=== PATIENT | female | born 1945 | race Caucasian/White ===

== ENCOUNTER 2024-04-23 20:49 | Emergency (ER) | payer MEDICARE, BC, SELFPAY ==
[2024-04-23 21:20] VITALS: BP 138/74; PULSE 111; RESP 16; TEMP 37.7; O2SAT 99; BMI 29.2
--- NOTE | 2024-04-23 21:36 | ED_ITS ---
HPI - General Adult General Chief complaint: Abdominal Pain Stated complaint: Abdominal Pain Time Seen by Provider: 04/23/24 21:25 Source: patient Mode of arrival: ambulatory Limitations: no limitations History of Present Illness HPI narrative: 78-year-old female coming in today complaining of abdominal pain that started almost 24 hours ago. She states that it comes and goes, nothing makes it better or worse. Pain is located in the lower central abdomen radiates to the left on the right. The she states that she has no dysuria, increased urinary frequency or urgency. She denies any vomiting but did have 1 episode of nausea. Last bowel movement was yesterday. She denies any fevers but feels colder than usual. She is quite concerned because her temperature usually runs 97 and today she was 99. No chest pain, headache, fatigue or weakness. Past surgical history includes a hysterectomy and oophorectomy, cholecystectomy, appendectomy. She has also had a tonsillectomy. Related Data Home Medications ?Medication ?Instructions ?Recorded ?Confirmed asprin 81 mg sublingual 10/07/22 04/25/23 calcium carbonate (Tums Ultra) 400 mg PO ONCE 10/07/22 04/25/23 chlorthalidone 25 mg tablet 25 mg PO 10/07/22 04/25/23 cholecalciferol (vitamin D3) 125 125 mcg PO QDAY 10/07/22 04/25/23 mcg (5,000 unit) capsule losartan 50 mg tablet 50 mg PO 10/07/22 04/25/23 nitroglycerin 0.4 mg sublingual 0.4 mg sublingual 10/07/22 04/25/23 tablet pantoprazole 20 mg tablet,delayed mg PO 10/07/22 04/25/23 release potassium chloride 10 mEq meq PO 10/07/22 04/25/23 tablet,extended release(part/cryst) acetaminophen 500 mg tablet 500 mg PO Q6H PRN 04/25/23 04/25/23 (Tylenol Extra Strength) psyllium husk 0.4 gram capsule 0.4 g PO QDAY 04/25/23 04/25/23 (Metamucil) Previous Rx's ?Medication ?Instructions ?Recorded ketorolac 10 mg tablet 10 mg PO Q8H 5 days #15 tabs 04/23/23 ciprofloxacin HCl 500 mg tablet 500 mg PO BID 10 days #20 tabs 04/23/24 metronidazole 500 mg tablet 500 mg PO TID 10 days #30 tabs 04/23/24 Allergies Allergy/AdvReac Type Severity Reaction Status Date / Time codeine Allergy Verified 04/23/24 21:22 hydrocodone Allergy Verified 04/23/24 21:22 iodine Allergy Verified 04/23/24 21:22 lisinopril Allergy Verified 04/23/24 21:22 meperidine [From Demerol] Allergy Verified 04/23/24 21:22 nitrofurantoin Allergy Verified 04/23/24 21:22 [From Macrodantin] oxycodone Allergy Verified 04/23/24 21:22 Penicillins Allergy Verified 04/23/24 21:22 [id number] Reductase Allergy Verified 04/23/24 21:22 Inhibitor Sulfa (Sulfonamide Allergy Verified 04/23/24 21:22 Antibiotics) tetracycline Allergy Verified 04/23/24 21:22 hydromorphone [From Dilaudid] AdvReac Verified 04/23/24 21:22 Review of Systems Status of ROS: Reports: 10 or more systems reviewed and unremarkable except as noted in History and below PFSH PFS Medical History H. 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) Surgical History History of cholecystectomy (~08/2021) ?Z90.49 - Acquired absence of other specified parts of digestive tract (ICD- 10) History of tonsillectomy ?Z90.89 - Acquired absence of other organs (ICD-10) History of hysterectomy ?Z90.710 - Acquired absence of both cervix and uterus (ICD-10) Social History Narrative: -[place] Smoking Status: Former smoker What tobacco products do you use: cigarettes Smoking quit date/years: >15 years ago Do you use any of these nicotine containing products: None Second hand tobacco smoke exposure: No How often do you have a drink containing alcohol: 2-4 times a month How many standard drinks containing alcohol do you have on a typical day: 1 or 2 How often do you have six or more drinks on one occasion: Never AUDIT-C Alcohol total score: 2 Non-prescribed substance use: denies use service: No Exam Narrative: Exam Narrative: Well-nourished well-developed patient in no acute distress. Alert and oriented. Answers questions appropriately. Mood and affect are appropriate. Thoughts are goal oriented and rational. No tangential or magical thinking noted. Patient speaks in full sentences without needing to catch her breath. HEENT: Normocephalic atraumatic. Pupils are equally round reactive to light. Extraocular muscles are intact. Conjunctivae are moist without any icterus noted. Moist mucous membranes. Posterior pharynx is normal. Neck is soft. Cardiovascular: Heart is regular rate and rhythm S1 and S2 are present without any murmurs. Lungs: Clear to auscultation bilaterally no wheezes rhonchi or rales are appreciated. Patient takes deep breaths without any discomfort. Abdomen: Soft and nondistended. Patient jumps in discomfort with light touch to the majority of the abdominal wall. I can auscultate quite firmly with a stethoscope, bowel sounds are normal. Extremities: Bilateral lower extremities are without edema. Skin: Well perfused without any obvious rashes. Const: Vital Signs, click to edit/add: Vital Signs - 24 hr 04/23/24 21:20 Temperature 99.9 F H Pulse Rate [Right Pulse Oximeter] 111 H Respiratory Rate 16 Blood Pressure [Ri ght Upper Arm] 138/74 Pulse Oximetry 99 Oxygen Delivery Me thod Room Air Course Course ED Course: IV established and labs were ordered. Because of the amount of pain that the patient was describing and given her tachycardia, we did proceed with an abdominal CT scan. CBC showed a slightly elevated white cell count at 13.22, 75% neutrophils. Normal hemoglobin and platelet count. Potassium was slightly low at 3.2, remainder of electrolytes were unremarkable. LFTs were normal. CRP is elevated at 5.6. Normal lipase. UA was unremarkable. Abdominal CT scan: Shows acute uncomplicated diverticulitis. Vital Signs Vital signs: Initial Vital Signs Temperature 99.9 F H 04/23/24 21:20 Temperature Source Temporal Artery Scan 04/23/24 21:20 Pulse Rate 111 H 04/23/24 21:20 Pulse Rhythm Regular 04/23/24 21:20 Pulse Strength 3+ Normal 04/23/24 21:20 Respiratory Rate 16 04/23/24 21:20 Blood Pressure 138/74 04/23/24 21:20 Blood Pressure Mean 95 04/23/24 21:20 Blood Pressure Position Sitting 04/23/24 21:20 Pulse Oximetry 99 04/23/24 21:20 Oxygen Delivery Method Room Air 04/23/24 21:20 Vital Signs Temperature 99.9 F H 04/23/24 21:20 Pulse Rate 111 H 04/23/24 21:20 Respiratory Rate 16 04/23/24 21:20 Blood Pressure 138/74 04/23/24 21:20 Pulse Oximetry 99 04/23/24 21:20 Oxygen Delivery Method Room Air 04/23/24 21:20 Temperature 99.9 F H 04/23/24 21:20 Pulse Rate 111 H 04/23/24 21:20 Respiratory Rate 16 04/23/24 21:20 Blood Pressure 138/74 04/23/24 21:20 Pulse Oximetry 99 04/23/24 21:20 Oxygen Delivery Method Room Air 04/23/24 21:20 Medications Administered Medications: Discontinued Medications Generic Name Dose Route Start Last Admin Trade Name Freq PRN Reason Stop Dose Admin Sodium Chloride 1,000 mls @ 1,000 mls/hr 04/23/24 22:30 04/23/24 23:33 0.9 % Sodium Chloride 1000 Ml IV 04/23/24 23:29 Infused .Q1H EDITA Infusion Medical Decision Making MDM Narrative Medical decision making narrative: 78-year-old female with diverticulitis. Since the patient is not having any vomiting and is feeling better after fluid hydration, I do think that outpatient management is appropriate at this time. Patient will be sent home on Flagyl and ciprofloxacin. Follow-up with primary care in 1 week. Medical Records Medical records reviewed: Yes I reviewed the patient's medical records Lab Data Lab results reviewed: Yes I reviewed the patient's lab results Labs: Lab Results 04/23/24 04/23/24 04/23/24 Range/Units 21:49 21:49 21:49 WBC (4.50-11.00) K/uL RBC (4.00-5.20) m/uL Hgb (12.0-16.0) gm/dL Hct (33.0-51.0) % MCV (80-100) fL MCH (26-34) pg MCHC (32-36) gm/dL RDW Coeff of Rocio (11.5-15.5) % Plt Count (140-440) K/uL Neut % (Auto) (42.0-72.0) % Lymph % (Auto) (20-44) % [place] % (Auto) (0.0-11.0) % Eos % (Auto) (0.0-7.0) % Baso % (Auto) (0.0-3.0) % Neut # (Auto) (1.7-7.0) K/uL Lymph # (Auto) (0.90-2.90) K/uL [place] # (Auto) (0.00-0.90) K/UL Eos # (Auto) (0.00-0.50) K/uL Baso # (Auto) (0.00-0.30) K/uL Abs Immat Gran (auto) (0.00-0.30) K/uL Imm/Tot Granulo (auto) % Sodium 136 (135-149) mmol/L Potassium 3.2 L (3.6-5.1) mmol/L Chloride 102 (96-114) mmol/L Carbon Dioxide 30 (20-32) mmol/L Anion Gap 4 L (7-15) mEq/L BUN 15 (7-30) mg/dL Creatinine 0.7 (0.5-1.5) mg/dL Estimated Creat Clear 38.97 Estimated GFR 89 ml/min Glucose 105 (60-115) mg/dL Lactate 0.9 (0.5-1.9) mmol/L Calcium 8.8 (8.4-10.6) mg/dL Total Bilirubin 1.2 Cancelled (0.1-1.5) mg/dL Direct Bilirubin 0.5 Cancelled (0.0-0.5) mg/dL AST 29 (12-35) U/L ALT (4-35) U/L Alkaline Phosphatase (40-150) U/L C-Reactive Protein (0.5-1.0) mg/dL Total Protein (6.0-8.3) g/dL Albumin (3.3-5.0) g/dL Lipase (23-300) U/L Urine Color (Yellow) Urine Appearance (Clear) Urine pH (5.0-8.5) Ur Specific [place] (1.000-1.030) Urine Protein (Negative) Urine Glucose (UA) (Negative) Urine Ketones (Negative) Urine Blood (Negative) Urine Nitrite (Negative) Urine Bilirubin (Negative) Urine Urobilinogen (0.2-1.0) Ur Leukocyte Esterase (Negative) Urine RBC (0-2) Urine WBC (0-5) Ur Squamous Epith Cells (None-Few) Urine Bacteria (None) POC Creatinine (0.6-1.3) mg/dl 04/23/24 04/23/24 04/23/24 Range/Units 21:49 21:49 21:49 WBC (4.50-11.00) K/uL RBC (4.00-5.20) m/uL Hgb (12.0-16.0) gm/dL Hct (33.0-51.0) % MCV (80-100) fL MCH (26-34) pg MCHC (32-36) gm/dL RDW Coeff of Rocio (11.5-15.5) % Plt Count (140-440) K/uL Neut % (Auto) (42.0-72.0) % Lymph % (Auto) (20-44) % [place] % (Auto) (0.0-11.0) % Eos % (Auto) (0.0-7.0) % Baso % (Auto) (0.0-3.0) % Neut # (Auto) (1.7-7.0) K/uL Lymph # (Auto) (0.90-2.90) K/uL [place] # (Auto) (0.00-0.90) K/UL Eos # (Auto) (0.00-0.50) K/uL Baso # (Auto) (0.00-0.30) K/uL Abs Immat Gran (auto) (0.00-0.30) K/uL Imm/Tot Granulo (auto) % Sodium (135-149) mmol/L Potassium (3.6-5.1) mmol/L Chloride (96-114) mmol/L Carbon Dioxide (20-32) mmol/L Anion Gap (7-15) mEq/L BUN (7-30) mg/dL Creatinine (0.5-1.5) mg/dL Estimated Creat Clear Estimated GFR ml/min Glucose (60-115) mg/dL Lactate (0.5-1.9) mmol/L Calcium (8.4-10.6) mg/dL Total Bilirubin (0.1-1.5) mg/dL Direct Bilirubin (0.0-0.5) mg/dL AST Cancelled (12-35) U/L ALT 21 Cancelled (4-35) U/L Alkaline Phosphatase 88 Cancelled (40-150) U/L C-Reactive Protein 5.6 H (0.5-1.0) mg/dL Total Protein 8.0 (6.0-8.3) g/dL Albumin (3.3-5.0) g/dL Lipase (23-300) U/L Urine Color (Yellow) Urine Appearance (Clear) Urine pH (5.0-8.5) Ur Specific [place] (1.000-1.030) Urine Protein (Negative) Urine Glucose (UA) (Negative) Urine Ketones (Negative) Urine Blood (Negative) Urine Nitrite (Negative) Urine Bilirubin (Negative) Urine Urobilinogen (0.2-1.0) Ur Leukocyte Esterase (Negative) Urine RBC (0-2) Urine WBC (0-5) Ur Squamous Epith Cells (None-Few) Urine Bacteria (None) POC Creatinine (0.6-1.3) mg/dl 04/23/24 04/23/24 04/23/24 Range/Units 21:49 21:49 21:49 WBC (4.50-11.00) K/uL RBC (4.00-5.20) m/uL Hgb (12.0-16.0) gm/dL Hct (33.0-51.0) % MCV (80-100) fL MCH (26-34) pg MCHC (32-36) gm/dL RDW Coeff of Rocio (11.5-15.5) % Plt Count (140-440) K/uL Neut % (Auto) (42.0-72.0) % Lymph % (Auto) (20-44) % [place] % (Auto) (0.0-11.0) % Eos % (Auto) (0.0-7.0) % Baso % (Auto) (0.0-3.0) % Neut # (Auto) (1.7-7.0) K/uL Lymph # (Auto) (0.90-2.90) K/uL [place] # (Auto) (0.00-0.90) K/UL Eos # (Auto) (0.00-0.50) K/uL Baso # (Auto) (0.00-0.30) K/uL Abs Immat Gran (auto) (0.00-0.30) K/uL Imm/Tot Granulo (auto) % Sodium (135-149) mmol/L Potassium (3.6-5.1) mmol/L Chloride (96-114) mmol/L Carbon Dioxide (20-32) mmol/L Anion Gap (7-15) mEq/L BUN (7-30) mg/dL Creatinine (0.5-1.5) mg/dL Estimated Creat Clear Estimated GFR ml/min Glucose (60-115) mg/dL Lactate (0.5-1.9) mmol/L Calcium (8.4-10.6) mg/dL Total Bilirubin (0.1-1.5) mg/dL Direct Bilirubin (0.0-0.5) mg/dL AST (12-35) U/L ALT (4-35) U/L Alkaline Phosphatase (40-150) U/L C-Reactive Protein (0.5-1.0) mg/dL Total Protein Cancelled (6.0-8.3) g/dL Albumin 4.5 Cancelled (3.3-5.0) g/dL Lipase 47 Cancelled (23-300) U/L Urine Color (Yellow) Urine Appearance (Clear) Urine pH (5.0-8.5) Ur Specific [place] (1.000-1.030) Urine Protein (Negative) Urine Glucose (UA) (Negative) Urine Ketones (Negative) Urine Blood (Negative) Urine Nitrite (Negative) Urine Bilirubin (Negative) Urine Urobilinogen (0.2-1.0) Ur Leukocyte Esterase (Negative) Urine RBC (0-2) Urine WBC (0-5) Ur Squamous Epith Cells (None-Few) Urine Bacteria (None) POC Creatinine (0.6-1.3) mg/dl 04/23/24 04/23/24 04/23/24 Range/Units 21:51 22:23 Unknown WBC 13.22 H (4.50-11.00) K/uL RBC 4.86 (4.00-5.20) m/uL Hgb 14.2 (12.0-16.0) gm/dL Hct 43.5 (33.0-51.0) % MCV 90 (80-100) fL MCH 29 (26-34) pg MCHC 33 (32-36) gm/dL RDW Coeff of Rocio 13.1 (11.5-15.5) % Plt Count 149 (140-440) K/uL Neut % (Auto) 75.4 H (42.0-72.0) % Lymph % (Auto) 14.3 L (20-44) % [place] % (Auto) 8.9 (0.0-11.0) % Eos % (Auto) 0.3 (0.0-7.0) % Baso % (Auto) 0.5 (0.0-3.0) % Neut # (Auto) 10.00 H (1.7-7.0) K/uL Lymph # (Auto) 1.90 (0.90-2.90) K/uL [place] # (Auto) 1.20 H (0.00-0.90) K/UL Eos # (Auto) 0.00 (0.00-0.50) K/uL Baso # (Auto) 0.10 (0.00-0.30) K/uL Abs Immat Gran (auto) 0.10 (0.00-0.30) K/uL Imm/Tot Granulo (auto) 0.6 % Sodium (135-149) mmol/L Potassium (3.6-5.1) mmol/L Chloride (96-114) mmol/L Carbon Dioxide (20-32) mmol/L Anion Gap (7-15) mEq/L BUN (7-30) mg/dL Creatinine (0.5-1.5) mg/dL Estimated Creat Clear Estimated GFR ml/min Glucose (60-115) mg/dL Lactate (0.5-1.9) mmol/L Calcium (8.4-10.6) mg/dL Total Bilirubin (0.1-1.5) mg/dL Direct Bilirubin (0.0-0.5) mg/dL AST (12-35) U/L ALT (4-35) U/L Alkaline Phosphatase (40-150) U/L C-Reactive Protein (0.5-1.0) mg/dL Total Protein (6.0-8.3) g/dL Albumin (3.3-5.0) g/dL Lipase (23-300) U/L Urine Color Yellow (Yellow) Urine Appearance Clear (Clear) Urine pH 7.0 (5.0-8.5) Ur Specific [place] 1.010 (1.000-1.030) Urine Protein Negative (Negative) Urine Glucose (UA) Negative (Negative) Urine Ketones Negative (Negative) Urine Blood Negative (Negative) Urine Nitrite Negative (Negative) Urine Bilirubin Negative (Negative) Urine Urobilinogen 0.2 (0.2-1.0) Ur Leukocyte Esterase Negative (Negative) Urine RBC 0-2 (0-2) Urine WBC 0-2 (0-5) Ur Squamous Epith Cells Moderate A (None-Few) Urine Bacteria Few A (None) POC Creatinine 0.7 (0.6-1.3) mg/dl Imaging Data CT scan - abdomen: Attestation: I have reviewed the pertinent imaging results. Radiologist's impression: Procedure(s): CT abdomen pelvis [facility] Accession Number(s): [id number] cc: Destini Lynch M.D.; John Johns M.D.~ For Patients: As a result of the Century Cures Act, medical imaging exams and procedure reports are released immediately into your electronic medical record. You may view this report before your referring provider. If you have questions, please contact your health care provider. INDICATION: Abdominal pain. TECHNIQUE: CT abdomen and pelvis without contrast. COMPARISON: None. FINDINGS: Lower chest: Unremarkable. Liver: Normal in size and attenuation. Gallbladder and bile ducts: Status post cholecystectomy. Spleen: Normal in size. Adrenal glands: Normal in size. No nodules. Pancreas: Unremarkable. No mass or inflammation. Kidneys: Normal in size. No stones or hydronephrosis. GI tract: Distal colonic diverticulosis. Wall thickening with surrounding inflammatory stranding of the distal sigmoid colon. No evidence of obstruction. Appendix not visualized. Lymph nodes: No lymphadenopathy. Vasculature: Moderate scattered atherosclerotic calcifications. Abdominal aorta is normal in caliber. Abdominal wall/Omentum/Peritoneum: Trace free fluid in the pelvis. No focal fluid collection. No free air. Pelvis: Status post hysterectomy. Bones: Degenerative changes. Levoconvex curvature of the lumbar spine. IMPRESSION: Acute uncomplicated sigmoid diverticulitis. Discharge Plan Discharge Clinical Impression: Diverticulitis Patient Disposition: Home, Self-Care Condition: Stable Additional Instructions: Take all antibiotics as prescribed. You should follow-up with your primary care provider in 1 week. Prescriptions: New ciprofloxacin HCl 500 mg tablet 500 mg PO BID 10 Days Qty: 20 0RF metronidazole 500 mg tablet 500 mg PO TID 10 Days Qty: 30 0RF No Action losartan 50 mg tablet 50 mg PO chlorthalidone 25 mg tablet 25 mg PO pantoprazole 20 mg tablet,delayed release (DR/EC) PO potassium chloride 10 mEq tablet,ER particles/crystals PO nitroglycerin 0.4 mg tablet, sublingual 0.4 mg sublingual asprin 81 mg sublingual cholecalciferol (vitamin D3) 125 mcg (5,000 unit) capsule 125 mcg PO QDAY calcium carbonate [Tums Ultra] 400 mg calcium (1,000 mg) tablet,chewable 400 mg PO ONCE acetaminophen [Tylenol Extra Strength] 500 mg tablet 500 mg PO Q6H PRN psyllium husk [Metamucil] 0.4 gram capsule 0.4 g PO QDAY ketorolac 10 mg tablet 10 mg PO Q8H 5 Days Qty: 15 0RF Follow Up/Referrals: John Johns MD [Primary Care Provider] - Stand Alone Forms: [facility] Info Instructions
--- NOTE | 2024-04-23 21:41 | CRLHL7_ITS ---
For Patients: As a result of the Century Cures Act, medical imaging exams and procedure reports are released immediately into your electronic medical record. You may view this report before your referring provider. If you have questions, please contact your health care provider. INDICATION: Abdominal pain. TECHNIQUE: CT abdomen and pelvis without contrast. COMPARISON: None. FINDINGS: Lower chest: Unremarkable. Liver: Normal in size and attenuation. Gallbladder and bile ducts: Status post cholecystectomy. Spleen: Normal in size. Adrenal glands: Normal in size. No nodules. Pancreas: Unremarkable. No mass or inflammation. Kidneys: Normal in size. No stones or hydronephrosis. GI tract: Distal colonic diverticulosis. Wall thickening with surrounding inflammatory stranding of the distal sigmoid colon. No evidence of obstruction. Appendix not visualized. Lymph nodes: No lymphadenopathy. Vasculature: Moderate scattered atherosclerotic calcifications. Abdominal aorta is normal in caliber. Abdominal wall/Omentum/Peritoneum: Trace free fluid in the pelvis. No focal fluid collection. No free air. Pelvis: Status post hysterectomy. Bones: Degenerative changes. Levoconvex curvature of the lumbar spine. IMPRESSION: Acute uncomplicated sigmoid diverticulitis. Please note that all CT scans at this facility use dose modulation, iterative reconstruction, and/or weight-based dosing when appropriate to reduce radiation dose to as low as reasonably achievable. Dictated by Emmett Sainz MD @ 04/23/2024 11:37:29 PM (Electronically Signed)
--- OUTSIDE RECORDS SUMMARY | 2024-04-23 21:45 | XMS_ITS | Continuity of Care Document ---
Author Organization [facility] Address [address] [place] [address] Phone Care Team Providers Care Director Of Vital Statistics Name Role Phone Jhoan Sandoval Unavailable Unavailable Allergies, Adverse Reactions, Alerts Substance Reaction Status Criticality Kinkpln-HWK-ScI Reductase Inhibitors Acti ve No Information NITROFURANTOIN MACROCRYSTALLINE Active No Information lisinopril Cough Active No Information hydrocodone Nausea Active No Information Sulfa (Sulfonamide Antibiotics) Unknown Active No Information tetracycline Unknown Active No Information Penicillins Unknown Active No Information oxycodone Nausea Active No Information ATORVASTATIN CALCIUM Unknown Active No Info rmation iodine Unknown Active No Information PRESERVATIVE FREE Unknown Active No Informa tion MEPERIDINE HCL Unknown Active No Informatio n codeine Unknown Active No Information Medications Medication Instructions Dosage Effective Dates (start - stop) Status Comments Vitamin D3 5,000 unit tablet - Active ASPIRIN (unknown strength) Not Available - Active CALCIUM-FOLIC ACID PLUS D (unknown strength) Not Available - Active NITRO-TIME (unknown strength) Not Available - Active OMEPRAZOLE (unknown strength) Not Available - Active CHLORTHALIDONE (unknown strength) Not Available - Active [place]AN POTASSIUM (unknown strength) Not Available - Active Procedures Procedure Date OFFICE/OUTPATIENT VISIT EST Phone Office/Outpatient Visit,New, Mod 2021 Office/Outpatient Visit,Est, Mod 2015 X-Ray Exam Lwr Spine, Min 4 Views Office/Outpatient Visit,Est, Mod 2014 X-Ray Exam Lower Spine 2-3 Views 2014 Office/Outpatient Visit,Est, Mod 2014 X-Ray Exam Lower Spine 2-3 Views 2014 Office/Outpatient Visit,Est, Mod 2014 Office/Outpatient Visit,New, Mod 2014 Advance Directives Directive Yes / No Effective Date File Name No Information Encounters Encounter Description Practice Location Reason(s) For Visit Diagnoses Date Provider Providers Copied on Encounter [facility], [address], [place], [id number], [place] tel:[phone] [facility] No Information 2 Segun Staples. [facility] [place], [address], [place], [place], [id number] , [place]. tel:[phone] OFFICE/OUTPAT IENT VISIT EST Phone [facility], [address], [facility], [place], [id number], [place] tel:[phone] [facility] No Information 2 Segun Staples. [facility], [address], [place], [place], [id number] , [place]. tel:[phone] Referring Provider: Jaren Tran [facility] [address], [place], [address]. tel:[phone] Office/Outpat ient Visit,New, Mod [facility], [address], [facility], [place], [id number], [place] tel:[phone] [facility] Other spondylosis, lumbar regionPain in thoracic spineCervicalgia 2 Segun Staples. [facility] [place], [address], [facility], [id number] , [place]. tel:[phone] Referring Provider: Jaren Tran [facility] [address], [place], [address]. tel:[phone] Office/Outpat ient Visit,Est, Mod [facility], [address], [place], [place], [id number], [place] tel:[phone] [facility] OverweightL2 wedge compression fracture, subsequent encounter for fracture w/ routine healingOther forms of scoliosis, lumbar regionOther spondylosis, lumbosacral region Jan-2 6 [facility]. [facility], [address], [place], [place], [id number] , [place]. tel: [phone] Referring Provider: Jaren Tran [facility] [address], [place], [address]. tel:[phone] Office/Outpat ient Visit,Est, Mod [facility], [address], [place], [id number], [place] tel:[phone] [facility] Closed fracture lumbar vertebraLumbago Sep- 0 5 [facility]. [facility], [address] [address], [facility] [place], [id number] , [place]. tel: [phone] [facility]: [facility] [address], [place], [address]. tel:[phone] Office/Outpat ient Visit,Est, Mod [facility], [address], [place], [id number], [place] tel:[phone] [facility] OVERWEIGHTClosed fracture lumbar vertebra May- 5 [facility]. [facility], [address], [facility] [place], [id number] , [place]. tel: [phone] Referring Provider: J[address], [place], [address]. tel:[phone] Office/Outpat ient Visit,Est, Mod [facility], [address], [place], [id number], [place] tel:[phone] [facility] Closed fracture lumbar vertebra 5 [facility]. [facility], [address], [facility] [place], [id number] , [place]. tel: [phone] Referring Provider: [facility] [address], [place], [address]. tel:[phone] Office/Outpat ient Visit,New, Mod [facility], [address], [place], [place], [id number], [place] tel:[phone] [facility] OVERWEIGHTClosed fracture of lumbar vertebra without mention of spinal cord injuryLumbago 0201 5 [facility]. [facility], [address], [place], [place], [id number] , [place]. tel:[phone] Referring Provider: John Johns, [place], [place], [address]. tel:[phone] Family History Family Member Type Diagnosis Age At Onset No Information Payers Payer name Insurance type Covered constitution party ID Authoriza tion(s) Medicare MB [id number] [facility] [id number] [facility] [id number] Social History Type Description Quantity Date Captured Comments Sex Female Smoking Status No Information Chief Complaint And Reason For Visit No Information Reason For Referral Reason For Referral No Information Plan Of Treatment Date Type Action Status Future Order: Radiology Order AP Lateral Lumbar (APLatLumb), Ordered on: Ordered Future Order: Radiology Order F/ E Lumbar (F/ELumb), Ordered on: Ordered Future Order: Radiology Order AP Lateral Lumbar (APLatLumb), Ordered on: Ordered Future Order: Radiology Order AP Lateral Lumbar (APLatLumb), Ordered on: Ordered Future Order: Radiology Order AP Lateral Lumbar (APLatLumb), Ordered on: Ordered History Of Present Illness Encounter Date Complaint History Of Prese nt Illness No Information Functional Status Date Functional Assessmen t No Information Instructions Date Instruction Additional Infor martir Weight Management Education Rela niya to Overweight Weight management: I nstructed to return to General Practitioner timeframe: 1 Month. Related to Overweight Weight Management Related to Ove rweight Weight Management Related to Ove [facility] providencet Assessments Type Assessment Date No Information Patient Care Teams Name Effective Dates (start - stop) Status Members No Information
--- OUTSIDE RECORDS SUMMARY | 2024-04-23 21:45 | XMS_ITS | Clinical Summary ---
Author Organization [facility] Address [place], [place] [address] Care Team Providers Care Returned Materials Inspector Name Role Phone David Price MD Unavailable [phone] VoteJohn garibay MD Primary Care Provider + Allergies Active Allergy Reactions Criticality Noted Date Comments Codeine 02/20/2007 Meperidine 02/20/2007 Hydromorphone Hallucinations 05/24/2023 Hydrocodone Nausea Only 06/26/2014 Error wrong med Iodine *Unknown - Follow up needed,Anaphylaxis High 02/20/2007 Atorvastatin 02/20/2007 Lisinopril Cough High 12/15/2020 Meperidine Hcl *Unknown - Follow up needed 07/11/2023 Nitrofurantoin *Unknown Low 02/20/2007 Oxycodone Nausea Only 06/26/2014 Penicillins *Unknown - Follow up needed Low 02/20/2007 Pneumococcal Vaccine Edema 05/24/2023 Evolocumab Other - Describe In Comment Field 05/14/2019 Back pain (major) Fdyahzz-Ueu-Wor Reductase Inhibitors *Unknown,*Unknown - Follow up needed 02/20/2007 all statins Sulfa (Sulfonamide Antibiotics) *Unknown - Follow up needed 02/20/2007 Tetracycline *Unknown - Follow up needed 02/20/2007 Unlisted Allergen (Include Detail In Comments) Myalgia,*Unknown - Follow up needed,Other - Describe In Comment Field High 12/15/2020 Medications Medication Sig Dispensed Refills Start Date End Date Status Cholecalciferol, Vitamin D3, (VITAMIN D-3) 5,000 unit tabIndications:Vitam in D deficiency Take 1 tablet by mouth once daily. 100 tablet 3 09/15/2014 Active aspirin (ECOTRIN) 81 mg enteric coated tablet Take 1 tablet by mouth once daily with a meal. 0 10/04/2019 Active calcium carbonate CHEWABLE (TUMS) 750 mg chewable tablet Take 1 tablet by mouth 3 times daily with meals. 0 12/24/2020 Active psyllium (MetamuciL) 0.4 gram capsule Take 1 Capsule by mouth once daily. Active Graduated Compression StockingsIndications :Lymphedema of both lower extremities For personal use. Length: calf Strength: 20-30 mmHg 1 Packet 06/08/2023 Active chlorthalidone (HYGROTON) 25 mg tabletIndications:Es sential hypertension Take 1 Tablet (25 mg) by mouth once daily. 90 Tablet 3 04/10/2024 Active losartan (COZAAR) 50 mg tabletIndications:Es sential hypertension Take 1 Tablet (50 mg) by mouth once daily. 90 Tablet 3 04/10/2024 Active nitroglycerin (NITROSTAT) 0.4 mg sublingual tabletIndications: CVD (arteriosclerotic cardiovascular disease) Place 1 Tablet (0.4 mg) under the tongue every 5 minutes if needed for Chest Pain. Up to 3 tablets in 15 minutes. 25 Tablet 3 04/10/2024 Active losartan (COZAAR) 50 mg tabletIndications:Es sential hypertension Take 1 Tablet (50 mg) by mouth once daily. 90 Tablet 3 04/11/2023 4 Discontinue d(Reorder (E-cancel not sent)) nitroglycerin (NITROSTAT) 0.4 mg sublingual tabletIndications: CVD (arteriosclerotic cardiovascular disease) DISSOLVE ONE TABLET UNDER TONGUE EVERY 5 MINUTES NEEDED FOR CHEST PAIN - MAXIMUM 3 DOSES OVER 15 MINUTES, THEN CALL 911 25 Tablet 3 06/02/2023 4 Discontinue d(Reorder (E-cancel not sent)) chlorthalidone (HYGROTON) 25 mg tabletIndications:Es sential hypertension TAKE ONE TABLET BY MOUTH ONCE EVERY DAY . 90 Tablet 02/07/2024 4 Discontinue d(Reorder (E-cancel not sent)) Active Problems Problem Noted Date Diagnosed Date H. pylori infection 06/03/2022 Overview: EGD 05/2022 H. pylori infection with intestinal metaplasia, recommend EGD in 3 years Gastric intestinal metaplasia 06/03/2022 Overview: EGD 05/2022 H. pylori infection with intestinal metaplasia, recommend EGD in 3 years PAD (peripheral artery disease) 04/13/2022 Diverticulosis 08/19/2021 Former smoker 04/25/2018 ASCVD (arteriosclerotic cardiovascular disease) 04/25/2018 Overview: -CT coronary angiogram in 2012 Total calcium socre of 59.6; 75% for age and sex - angiogram 04/26/2018: s/p JOSE DAVID pRCA; residual 70% dCX - CCTA 07/29/2021:Patent right coronary stent but with moderately severe focal soft plaque stenosis post-stent - angiogram 08/12/2021 - Dyspnea 04/25/2018 Osteopenia 06/09/2015 Chest pain 09/11/2013 Hyperlipidemia 11/07/2012 Overview: -Intolerance to Pravachol, Crestor, Vytorin, Zetia, Niacin, and Welchol Elevated blood sugar 11/07/2012 Hypertension 12/14/2007 Dermatophytosis of nail 02/20/2007 Family history of ischemic heart disease Statin intolerance GERD (gastroesophageal reflux disease) Overview: EGD 03/2017 atrophic gastritis, no Ramires's Vitamin D deficiency Overview: 02/2012: 8.1 Resolved Problems Problem Noted Date Diagnosed Date Resolved Date Tobacco use disorder 012 Swelling, mass, or lump in head and neck 07/12/2012 Need for prophylactic hormon e replacement therapy (postmenopausal) 07/12/2012 Encounters Date Type Department Care Team Description 04/17/2024 Telephone [facility] [address] [facility] [address] [place] [address] Jose R Riddle MD Lab 04/10/2024 10:25 AM CDT Office Visit [facility] [address] [place] [address] John Johns MD Medicare ANNUAL (subsequent) Visit (78 year old female) 04/10/2024 Travel 02/26/2024 1:50 PM CDT Preop Visit [facility] [address] [place] [address] Yan Han MD Preoperative Exam (Cataract Surgery RIGHT 03/12/2024 - LEFT 03/18/2024/Dr Silvano Moon/[facility] [place] /FAX [phone]) 02/26/2024 Travel 02/26/2024 Telephone [facility] [address] [place] [address] Yan Han MD change appointment 02/07/2024 Refill [facility] [address] [place] [address] John Johns MD Refill Request (Chlorthalidone) 02/06/2024 Refill [facility] [address] [place] [address] John Johns MD Refill Request (Chlorthalidone) 02/01/2024 Refill [facility] [address] [place] [address] John Johns MD Refill Request (Chlorthalidone) from Last 3 Months Immunizations Name Administration Dates Next Due Influenza, High-dose Quadrivalent Inactivated Influenza, IIV3 (Age >=3 years) 08/22/2017 Influenza, IIV4 09/25/2019 Influenza, Inactivated AIIV4 (Age 65+ Years) Preserv Free 10/05/2022 Influenza, Inactivated IIV3 (Age 65+ Years) Preserv Free 08/22/2017 Pneumococcal Conj 20-valent (Prevnar 20) 023 Pneumococcal conj 13-Valent (Prevnar 13) 021 Td (Age >=7 Years) 02/01/2000 Tdap 02/12/2013 Family History Medical History Relation Name Comments Heart Disease Father Father had tom cardial infarction at age 58. Heart Disease Mother Mother had tom cardial infarction in her 60's. Other Mother macular degener ation Cancer-breast Other Pat. Cousin Heart Disease Sister Sister had tom cardial infarction in her 30's Relation Name Status Comments Father Mother (Age 84) COPD /CHF Other Sister Social History Tobacco Use Types Packs/Day Years Used Date Smoking Tobacco: Former Cigarettes 0.5 20 1 981 - 2000 Smokeless Tobacco: Never Tobacco Cessation:Counseling Given: Yes Comments:01/24/2006 used QuitPlan! Alcohol Use Standard Drinks/Week Comments Yes 0 (1 standard drink = 0.6 oz pur e alcohol) 1 per week or everyother week PHQ-2 Answer Date Recorded PHQ-2 TOTAL SCORE 0 04/10/2024 Social Connections Answer Date Recorded Frequency of Communication with Friends and Fami ly 0 02/26/2024 Financial Resource Strain Answer Date R ecorded Difficulty of Paying Living Expenses 3 02/26/2024 Difficulty of Paying Living Expenses Not on file 02/26/2024 Food Insecurity Answer Date Recorded Worried About Running Out of Food in the Last Ye ar 1 02/26/2024 Transportation Needs Answer Date Record ed Lack of Transportation (Medical) 1 02/26/2024 Housing Stability Answer Date Recorded Unable to Pay for Housing in the Last Year 1 02/26/2024 Sex and Gender Information Value Date Recorded Sex Assigned at Not on file Gender Identity Not on file Sexual Orientation Not on file Obstetrics History Last Filed Vital Signs Vital Sign Reading Time Taken Comments Blood Pressure 129/70 04/10/2024 10:25 AM CDT Pulse 76 04/10/2024 10:25 AM CDT Temperature 36.6 ??C (97.9 ??F) 04/10/2024 10:25 AM C DT Respiratory Rate 16 07/11/2023 12:43 PM CDT Oxygen Saturation 96% 04/10/2024 10:25 AM CDT Inhaled Oxygen Concentration - - Weight 75.4 kg (166 lb 3.2 oz) 04/10/2024 10:25 AM CDT Height 158.4 cm (5' 2.36) 04/10/2024 10:25 AM C DT Body Mass Index 30.05 04/10/2024 10:25 AM CDT Plan of Treatment Upcoming Encounters Date Type Department Care Team (Late st Contact Info) Description 05/20/2024 10:20 AM CDT Office Visit [facility] [place] [address] Bob Harrison MD [address] [place] [address] 06/26/2024 11:00 AM CDT Office Visit [facility] [place] [facility] [address] [place] [address] Jose R Riddle MD [address] [place] [address] Health Maintenance Due Date Last Done Comments Zoster (shingles) series for age 50+ (1 of 2) 1996 Tetanus booster 02/12/2023 02/12/2013, 02/01/2000 COVID-19 vaccine series (2022- season) 2023 Influenza for age 65+ 07/28/2024 10/05/2022 , 09/30/2020, 09/25/2019, Additional history exists BMI (ht and wt on same day) for age 18+ 04/10/2025 04/10/2024, 02/26/2024, 07/11/2023, Additional history exists Depression screening for age 12+ 04/10/2025 04/10/2024, 04/12/2023, 04/11/2023, Additional history exists Medicare Wellness for age 65+ 04/11/2025, 04/11/2023, 04/08/2021 Tdap Completed 02/12/2013 DEXA/DXA scan for age 65+ Completed 06/04/2015, CT Colonography for age 45-75 Discontinued 05/18/2021 Pneumococcal series for age 65+ Completed 3, 04/08/2021 Hepatitis C screening for ag e 18-79 Completed 04/10/2024 Procedures Procedure Name Priority Date/Time Associated Diagnosis Comments CBC WITH AUTO DIFFERENTIAL Routine 04/10/2024 12:15 PM CDT Medicare annual wellness visit, subsequent ANTI HCV Routine 04/10/2024 12:15 PM CDT Need for hepatitis C screening test LIPID PANEL W REFLEX MEASURED LDL Routine 04/10/2024 12:15 PM CDT Hyperlipidemia, unspecified hyperlipidemia type ALT (SGPT) Routine 04/10/2024 12:15 PM CDT Hyperlipidemia, unspecified hyperlipidemia type BASIC METABOLIC PANEL Routine 04/10/2024 12:15 PM CDT Hypertension CBC WITH AUTO DIFFERENTIAL Routine 04/10/2024 12:15 PM CDT Medicare annual wellness visit, subsequent CT ABDOMEN PELVIS COLONOGRAPHY DIAGNOSTIC W Today 05/18/2021 1:35 PM CDT Positive occult stool blood test Procedure and treatment not carried out for other reasons Diverticulosis of large intestine without hemorrhage XR DXA BONE DENSITY 2 SITES AXIAL Routine 06/04/2015 4:39 PM CDT Menopausal state from Last 3 Months or Most Recently Relevant to Health Maintenance Results * (ABNORMAL) CBC WITH AUTO DIFFERENTIAL (04/10/2024 12:15 PM CDT) WHITE BLOOD COUNT 5.7 4.5 - 11.0 thou/cu mm 04/10/2024 12:43 PM CDT [facility] RED BLOOD COUNT 4.74 4.00 - 5.20 mil/cu mm 04/10/2024 12:43 PM CDT [facility] HEMOGLOBIN 14.3 12.0 - 16.0 g/dL 04/10/2024 12:43 PM CDT [facility] HEMATOCRIT 43.1 33.0 - 51.0 % 04/10/2024 12:43 PM CDT [facility] MCV 91 80 - 100 fL 04/10/2024 12:43 PM CDT [facility] MCH 30.2 26.0 - 34.0 pg 04/10/2024 12:43 PM CDT [facility] MCHC 33.2 32.0 - 36.0 g/dL 04/10/2024 12:43 PM CDT [facility] RDW 14.1 11.5 - 15.5 % 04/10/2024 12:43 PM CDT [facility] PLATELET COUNT 167 140 - 440 thou/cu mm 04/10/2024 12:43 PM CDT [facility] MPV 13.1(H) 6.5 - 11.0 fL 04/10/2024 12:43 PM CDT [facility] % NEUT 62.7 % 04/10/2024 12:43 PM CDT [facility] % LYMPH 26.4 % 04/10/2024 12:43 PM CDT [facility] % MONO 9.2 % 04/10/2024 12:43 PM CDT [facility] % EOS 1.2 % 04/10/2024 12:43 PM CDT [facility] % BASO 0.5 % 04/10/2024 12:43 PM CDT [facility] ABSOLUTE NEUTROPHILS 3.5 1.7 - 7.0 thou/cu mm 04/10/2024 12:43 PM CDT [facility] ABSOLUTE LYMPHOCYTES 1.5 0.9 - 2.9 thou/cu mm 04/10/2024 12:43 PM CDT [facility] ABSOLUTE MONOCYTES 0.5 <0.9 thou/cu mm 04/10/2024 12:43 PM CDT [facility] ABSOLUTE EOSINOPHILS 0.1 <0.5 thou/cu mm 04/10/2024 12:43 PM CDT [facility] ABSOLUTE BASOPHILS 0.0 <0.3 thou/cu mm 04/10/2024 12:43 PM CDT [facility] Blood BLOOD SPECIMEN / Unknown Venipuncture / Unknown 04/10/2024 12:15 PM CDT 04/10/2024 12:15 PM CDT John Johns MD HEMATOLOGY [facility] [address] [place] [address], [place] [phone] * (ABNORMAL) LIPID PANEL W REFLEX MEASURED LDL (04/10/2024 12:15 PM CDT) Pathologist [facility] CHOLESTEROL,TOTAL 289(H) 100 - 199 mg/dL 04/11/2024 4:51 AM CDT [facility] Comment: Cholesterol, Total Reference Ranges Desirable <200 mg/dL Borderline 200-239 mg/dL High >=240 mg/dL TRIGLYCERIDES 388(H) <150 mg/dL 04/11/2024 4:51 AM CDT [facility] HDL CHOLESTEROL 37(L) >40 mg/dL 4:51 AM CDT [facility] NON-HDL CHOLESTEROL 252(H) <145 mg/dl 04/11/2024 4:51 AM T [facility] CHOL/HDL RATIO 7.81(H) <4.50 04/11/2024 4:51 AM CDT [facility] LDL CHOLESTEROL 174(H) <=130 mg/dL 04/11/2024 4:51 AM T [facility] VLDL CHOLESTEROL 78(H) <=30 mg/dL 04/11/2024 4:51 AM CDT [facility] PROVIDER ORDERED STATUS RANDOM 04/11/2024 4:51 AM T [facility] Blood BLOOD SPECIMEN / Unknown Venipuncture / Unknown 04/10/2024 12:15 PM CDT 04/10/2024 12:15 PM CDT John Johns MD CHEMISTRY [facility] [address] [place] [address], * ANTI HCV [55897.2] (04/10/2024 12:15 PM CDT) [facility] HEPATITIS C ANTIBODY Non-Reacti ve Non-React alayna 04/11/2024 5:50 AM CDT [facility] Comment:Please note, per www .CDC.gov: If a patient is known to be at high risk of HCV infection, or is symptomatic, and the physician's suspicion of HCV infection is high, HCV RNA testing is often employed and is of diagnostic value, even after an initial negative anti-HCV test result. Blood BLOOD SPECIMEN / Unknown Venipuncture / Unknown 04/10/2024 12:15 PM CDT 04/10/2024 12:15 PM CDT John Johns MD SEND OUTS Performing Organization Address City/[facility]/ZIP Co de Phone Number [facility] [address] [place] [address], [place] * ALT (SGPT) (04/10/2024 12:15 PM CDT) ALT (SGPT) 16 10 - 35 IU/L 04/11/2024 4:51 AM CDT [facility] Blood BLOOD SPECIMEN / Unknown Venipuncture / Unknown 04/10/2024 12:15 PM CDT 04/10/2024 12:15 PM CDT John Johns MD CHEMISTRY Performing Organization Address City/[facility] Co de Phone Number [facility] [address] [place] [address], [place] * (ABNORMAL) BASIC METABOLIC PANEL (04/10/2024 12:15 PM CDT) SODIUM 142 136 - 145 mmol/L 04/11/2024 4:51 AM CDT [facility] POTASSIUM 4.0 3.5 - 5.1 mmol/L 04/11/2024 4:51 AM CDT [facility] CHLORIDE 103 98 - 107 mmol/L 04/11/2024 4:51 AM CDT [facility] CO2,TOTAL 29 22 - 29 mmol/L 04/11/2024 4:51 AM CDT [facility] ANION GAP 10 5 - 18 04/11/2024 4:51 AM CDT [facility] GLUCOSE 101(H) 70 - 99 mg/dL 04/11/2024 4:51 AM CDT [facility] CALCIUM 9.6 8.8 - 10.2 mg/dL 04/11/2024 4:51 AM CDT [facility] BUN 19 8 - 23 mg/dL 04/11/2024 4:51 AM CDT [facility] CREATININE 0.79 0.50 - 0.90 mg/dL 04/11/2024 4:51 AM CDT [facility] BUN/CREAT RATIO 24(H) 10 - 20 4:51 AM CDT [facility] eGFR 77(L) >90 mL/min/1.7 3m2 04/11/2024 4:51 AM CDT [facility] Comment:As of 2022, eG FR is calculated by the CKD-EPI creatinine equation without race adjustment. ??eGFR can be influenced by muscle mass, exercise, and diet. ??The reported eGFR is an estimation only and is only applicable if the renal function is stable. Blood BLOOD SPECIMEN / Unknown Venipuncture / Unknown 04/10/2024 12:15 PM CDT 04/10/2024 12:15 PM CDT John Johns MD [facility] [address] [place] [address], * CT ABDOMEN PELVIS COLONOGRAPHY DIAGNOSTIC W (05/18/2021 1:35 PM CDT) Anatomical Region Laterality Modality Abdomen Other 05/18/2021 1:35 PM CDT Narrative 05/19/2021 7:07 AM CDT EXAM DATE: ? 05/18/2021 EXAM: CT COLONOGRAPHY LOCATION: [facility] DATE/TIME: 05/18/2021 1:30 PM INDICATION: Colorectal cancer screening. Positive fecal immunochemical test. ? Incomplete colonoscopy due to severe diverticulosis and narrowing of the sigmoid colon. Colonoscopy reached the sigmoid colon. COMPARISON: Colonoscopy report from earlier today. TECHNIQUE: Prone and supine CT abdomen and pelvis with air insufflation per rectum, with image postprocessing. Oral contrast. Dose reduction techniques were used. CONTRAST: 100 mL of Isovue 370 was administered from a single use vial with 0 mL discarded. ??MWR I-STAT Cr=0.7mg/dL, eGFR=82. [id number] ??Lot [id number] ??Ex:08/2023 FINDINGS: COLON: Sigmoid colonic diverticulosis. Remainder of the colon is normal. No colonic perforation. Suboptimal distention of the sigmoid colon in area of diverticulosis. Remainder of the colon is well seen. C Score: C0 Note: CT colonography is not intended for the detection of diminutive polyps (i.e. polyps less than or equal to 5mm), the presence of which will not likely change director of the patient. ADDITIONAL FINDINGS: No significant finding in the liver, spleen, pancreas, adrenal glands, and kidneys. Normal caliber abdominal aorta. No pelvic masses. E Score: E1, Normal examination or anatomic variant IMPRESSION: 1. ??Mildly limited evaluation of the sigmoid colon due to inadequate distention secondary to diverticulosis. No evidence of an obstructing mass. 2. ??Remainder of the colon is negative. 3. ??No significant extracolonic findings. ?? Procedure Note Yamil Cotto MD - 05/19/2021 EXAM DATE: 05/18/2021 EXAM: CT COLONOGRAPHY LOCATION: [facility] DATE/TIME: 05/18/2021 1:30 PM INDICATION: Colorectal cancer screening. Positive fecal immunochemicaltest. Incomplete colonoscopy due to severe diverticulosis and narrowing of thesigmoid colon. Colonoscopy reached the sigmoid colon. COMPARISON: Colonoscopy report from earlier today. TECHNIQUE: Prone and supine CT abdomen and pelvis with air insufflationper rectum, with image postprocessing. Oral contrast. Dose reductiontechniques were used. CONTRAST: 100 mL of Isovue 370 was administered from a single use vialwith 0 mL discarded. MWR I-STAT Cr=0.7mg/dL, eGFR=82. [id number] Lot [id number]:08/2023 FINDINGS: COLON: Sigmoid colonic diverticulosis. Remainder of the colon is normal. No colonic perforation. Suboptimal distention of the sigmoid colon in area of diverticulosis.Remainder of the colon is well seen. C Score: C0 Note: CT colonography is not intended for the detection of diminutivepolyps (i.e. polyps less than or equal to 5mm), the presence of which will not likelychange management of the patient. ADDITIONAL FINDINGS: No significant finding in the liver, spleen,pancreas, adrenal glands, and kidneys. Normal caliber abdominal aorta. No pelvicmasses. E Score: E1, Normal examination or anatomic variant IMPRESSION: 1. Mildly limited evaluation of the sigmoid colon due to inadequatedistention secondary to diverticulosis. No evidence of an obstructing mass. 2. Remainder of the colon is negative. 3. No significant extracolonic findings. Satish Ball MD CT * (ABNORMAL) XR DXA BONE DENSITY 2 SITES (06/04/2015 4:39 PM CDT) Anatomical Region Laterality Modality Spine, HIPS, HIPL, HIPR Other Narrative 06/08/2015 12:06 PM CDT Please see scanned document for results of this study. John Johns MD DEXA from Last 3 Months or Most Recently Relevant to Health Maintenance Advance Directives * Full Code (Latest Code Status on File) Date Activated Date Inactivated Comments 08/12/2021 8:38 AM 08/12/2021 4:33 PM Question Answer Comments Code Status Discussion: Discussed * Full Code Date Activated Date Inactivated Comments 04/26/2018 6:50 AM 04/26/2018 3:48 PM Care Teams Returned Materials Inspector Relationship Specialty Start Date End Date VotelJohn MD [address] [place] [address] PCP - General Family Practice 04/11/23 David Price MD Cardiology Cardiovascular Disease 12/13/12
[2024-04-23 21:54] LABS: Creatinine, Point-of-Care* 0.7 mg/dl (0.6-1.3)
[2024-04-23 21:55] LABS: Lactate* 0.9 mmol/L (0.5-1.9)
[2024-04-23] MEDS: 0.9 % SODIUM CHLORIDE 1000 ml 1,000 ML IV (22:32)
[2024-04-23 22:40] LABS: Appearance Urine Clear (Clear); Bilirubin Urine Negative (Negative); Blood Urine Negative (Negative); Color Urine Yellow (Yellow); Glucose Urine Negative (Negative); Ketones Urine Negative (Negative); Leukocyte Esterase Urine Negative (Negative); Nitrite Urine Negative (Negative); Protein Urine Negative (Negative); Urobilinogen Urine 0.2 (0.2-1.0)
[2024-04-23 22:43] LABS: Albumin* 4.5 g/dL (3.3-5.0); Chloride* 102 mmol/L (96-114)
[2024-04-23 22:44] LABS: Potassium* 3.2 mmol/L (3.6-5.1); Sodium* 136 mmol/L (135-149)
[2024-04-23 22:44] LABS: Bacteria Urine Few; RBC Urine 0-2 (0-2); Squamous Epithelial Cell Urine Moderate (None-Few); WBC Urine 0-2 (0-5)
[2024-04-23 22:46] LABS: Creatinine* 0.7 mg/dL (0.5-1.5); Est. Creatinine Clearance* 38.97; Estimated Glomerular Filt Rate 89 ml/min
[2024-04-23 22:47] LABS: Alanine Aminotransferase* 21 U/L (4-35); Alkaline Phosphatase* 88 U/L (40-150); Anion Gap 4 mEq/L (7-15); Aspartate Amino Transferase* 29 U/L (12-35); Bilirubin Direct* 0.5 mg/dL (0.0-0.5); Bilirubin Total* 1.2 mg/dL (0.1-1.5); Blood Urea Nitrogen* 15 mg/dL (7-30); Calcium* 8.8 mg/dL (8.4-10.6); Carbon Dioxide* 30 mmol/L (20-32); Glucose* 105 mg/dL (60-115); Lipase* 47 U/L (23-300)
[2024-04-23 22:50] LABS: C Reactive Protein* 5.6 mg/dL (0.5-1.0)
[2024-04-23 23:23] LABS: Basophils Percent Auto 0.5 % (0.0-3.0); Eosinophils Percent Auto 0.3 % (0.0-7.0); Hematocrit 43.5 % (33.0-51.0); Hemoglobin* 14.2 gm/dL (12.0-16.0); Immature Granulocytes Pct Auto 0.6 %; Lymphocytes Percent Auto 14.3 % (20-44); Mean Corpuscular HGB Conc 33 gm/dL (32-36); Mean Corpuscular Hemoglobin 29 pg (26-34); Mean Corpuscular Volume 90 fL (80-100); Monocytes Percent Auto 8.9 % (0.0-11.0); Neutrophils Percent Auto 75.4 % (42.0-72.0); Platelet Count* 149 K/uL (140-440); RDW Coefficient of Variation % 13.1 % (11.5-15.5); Red Blood Count 4.86 m/uL (4.00-5.20); White Blood Count* 13.22 K/uL (4.50-11.00)
[2024-04-23 23:24] LABS: Slide Review Reflex No
[2024-04-24 00:05] VITALS: BP 149/77; PULSE 109; TEMP 38.2
== END 2024-04-24 00:13 | disposition home or self-care (01) ==
PROVIDERS: Emergency Provider Family Medicine; PCP Family Medicine
DX: K57.32 Diverticulitis of large intestine without perforation or abscess without bleeding (principal)
CPT/HCPCS: 36415; 74176; 80048; 80076; 81001; 82565; 83605; 83690; 85025; 86140; 87086; 99284; J7030

== ENCOUNTER 2024-08-07 16:00 | Outpatient (RCR) | payer MEDICARE, BC, SELFPAY | END 2024-11-12 13:00 | disposition home or self-care (01) | PROVIDERS: PCP Family Medicine; Visit Provider Family Medicine | DX: M25.511 Pain in right shoulder (principal); G89.29 Other chronic pain; M25.512 Pain in left shoulder; M51.36 Other intervertebral disc degeneration, lumbar region; M47.816 Spondylosis without myelopathy or radiculopathy, lumbar region; M75.32 Calcific tendinitis of left shoulder; Z51.89 Encounter for other specified aftercare | CPT/HCPCS: 97140; 97161 ==

== ENCOUNTER 2025-04-06 08:49 | Observation (INO) | payer MEDICARE, BC, SELFPAY ==
[2025-04-06] VITALS (13 sets, daily range): BP systolic 123–153; BP diastolic 62–83; PULSE 76–98; RESP 13–23; TEMP 36.2–37; O2SAT 89–97; BMI 31.1; BMI 30.4
--- OUTSIDE RECORDS SUMMARY | 2025-04-06 08:51 | XMS_ITS ---
Author Organization [facility] Address [address] [place] [address] Care Team Providers Care Manager Social Services Name Role Phone Chito Manzo Primary Care Provider Tanesha Manzo MD, Chito Unavailable [phone] REASON FOR VISIT 6 month follow up Social History Sex Assigned At : Social History Observation Description Sex Assigned At Female Encounters Encounter Location Date [facility] [address] [place] [address] 10/09/2023 Chito Manzo Plan Of Treatment No Information Progress Notes * RYLEYDONG CHAVEZ KDOB: [birth year] (79 yo F)Acc No.[id number]:10/09/2023 Patient: DONG ZAMORA Provider: Vipin Manzo MD :1945 A ge:78 Y S ex:Female Date:10/09/2023 Address[address], [place] Pcp:Chito Manzo Structured Data:General cons ent obtained : Written; Date obtained: : 01/10/2023 Subjective: * Chief Complaints: * 1 . 6 month follow up. * Medical History: Objective: * Vitals: Assessment: Plan: * Treatment: * * Electronic signature of Franca Manzo MD, MD on 04/06/2025 at 09:51 AM EDT Sign off status: Pending * Provider: Vipin Manzo MD Date: 1 12/09/2022 Generated for Nany man/Pravin/Jaylin on: 0 04/06/2025 09:51 AM EDT
--- OUTSIDE RECORDS SUMMARY | 2025-04-06 08:51 | XMS_ITS ---
Author Organization [facility]LISTED [facility] Address [address] [place] [address] Care Team Providers Care Ultrasound Sonographer Name Role Phone Chito Manzo Primary Care Provider Tanesha Manzo MD, Chito Unavailable [phone] REASON FOR VISIT out of state Social History Sex Assigned At : Social History Observation Description Sex Assigned At Female Encounters Encounter Location Date Provider Diagnosis [facility] [address] [place] [address] 07/13/2024 Chito Manzo Plan Of Treatment No Information Progress Notes * DONG TELLEZ KDOB: [birth year] (79 yo F)Acc No.[id number]:07/13/2024 Patient: Vianney CARREONDONG :1945 A ge:79 Y S ex:Female Address:[address], [place], [address] * true * Date: Generated for Printi ng/Faxing/eTransmitting on: 0 04/06/2025 09:51 AM EDT
--- OUTSIDE RECORDS SUMMARY | 2025-04-06 08:51 | XMS_ITS | Patient Health Record ---
Author Organization [facility]LISTED FACILITY Address [address] [place] [address] Care Team Providers Care Civil Estimator Name Role Phone Chito Manzo Primary Care Provider Chito Leonard MD Unavailable [phone] Allergies Allergen (clinical drug ingredient) Drug/Non Drug Allergy documented on EMR Reaction Allergy Type Onset Date Status codeine Codeine Sulfate rash Drug Allergy A ctive atorvastatin Atorvastatin rash Drug Allergy A ctive evolocumab Evolocumab rash Drug Allergy Activ e hydrocodone Hydrocodone rash Drug Allergy Act alayna lisinopril Lisinopril rash Drug Allergy Activ e oxycodone Oxycodone rash Drug Allergy Active Substance with penicillin structure and antibacterial mechanism of action (substance) Penicillins rash Drug Allergy Active Substance with 4-ukehbed-0-methylgluta ryl-coenzyme A reductase inhibitor mechanism of action (substance) Statins rash Drug Allergy Active Substance with sulfonamide structure and antibacterial mechanism of action (substance) Sulfa Antibiotics rash Drug Allergy Active meperidine Meperidine rash Drug Allergy Activ e nitrofurantoin Nitrofurantoin rash Drug Allergy Active tetracycline Tetracycline rash Drug Allergy A ctive Reason For Referral No Information Medications Medication SIG (Take, Route, Frequency, Duration) Notes Start Date End Date Status Chlorthalidone 25 MG 1 tablet in the morning with food Orally Once a day Blood Pressure 04/13/2022 Active Calcium 500-2.5 MG-MCG 1 tablet with a meal Orally Once a day Bone Strength 12/24/2020 Active Vitamin C 500 MG as directed Orally Health 10/08/2021 Active Losartan Potassium 50 MG 1 tablet Orally Once a day Blood Pressure 05/11/2023 Active Nitrostat 0.4 MG as directed Sublingual Heart 10/11/2023 Active Cholecalciferol 125 MCG (5000 UT) 1 capsule Orally Once a day Bone Strength 09/15/2014 Active Ecotrin Low Strength 81 MG 1 tablet Orally Once a day Pain 10/04/2019 Active Social History Sex Assigned At : Social History Observation Description Sex Assigned At Female Alcohol Screen Question Answer Notes Did you have a drink contain ing alcohol in the past year? Yes How often did you have a dri nk containing alcohol in the past year? 2 to 3 times a week (3 points) How many drinks did you have on a typical day when you were drinking in the past year? 1 or 2 drinks (0 point) How often did you have 6 or more drinks on one occasion in the past year? Less than monthly (1 point) Points 4 Interpretation Positive Sexual History Question Answer Notes Had sex in the past 12 months (vaginal, oral, or anal)? No Have you ever had a Sexually transmitted disease ? No Last menstrual period 11/27/1976 Tobacco use other than smoking: Question Answer Notes Are you an other tobacco user? 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 [address] [place] [phone] [id number] DONG TELLEZ Self - patient is the insured 1 [facility] FFS COMMERCIAL [address] [address] [place] [address] [id number] DONG TELLEZ Self - patient is the insured 9 Medical (General) History Medical History History ICD Code cad hyperlipidemia hypertension gerd osteopenia diverticulosis Surgical History Surgery Date(Month/Year) endoscopy 04/18/2017 hysterectomy cholecystectomy 2020 tonsillectomy cardiac stents x 2
--- OUTSIDE RECORDS SUMMARY | 2025-04-06 08:52 | XMS_ITS | Clinical Summary ---
Author Organization [facility] Address [address] [place] [id number] Care Team Providers Care Emergency Communications Officer Name Role Phone David Price MD Unavailable [phone] VoteJustine garibay MD Primary Care Provider + Allergies Active Allergy Reactions Criticality Noted Date Comments Ciprofloxacin Other - Describe In Comment Field 05/20/2024 Tension in arm Codeine 02/20/2007 Meperidine 02/20/2007 Hydromorphone Hallucinations 05/24/2023 [...] In Comment Field 05/14/2019 Back pain (major) Vjojxjc-Pyo-Ykl Reductase Inhibitors *Unknown,*Unknown - Follow up needed 02/20/2007 all statins Sulfa (Sulfonamide Antibiotics) *Unknown - Follow up needed 02/20/2007 Tetracycline *Unknown - Follow up needed 02/20/2007 Tramadol Nausea Only 2024 Dizziness, and passed out Unlisted Allergen (Include Detail In Comments) Myalgia,*Unknown - Follow up needed,Other - Describe In Comment Field High 12/15/2020 Medications Cholecalciferol, Vitamin D3, (VITAMIN D-3) 5,000 unit tabIndications:Vi tamin D deficiency Take 1 tablet by mouth once daily. 100 tablet 3 09/15/20 14 Active aspirin (ECOTRIN) 81 mg enteric coated tablet Take 1 tablet by mouth once daily with a meal. 0 10/04/20 19 Active psyllium (MetamuciL) 0.4 gram capsule Take 1 Capsule by mouth once daily if needed for Constipation. Active chlorthalidone (HYGROTON) 25 mg tabletIndications :Essential hypertension Take 1 Tablet (25 mg) by mouth once daily. 90 Tablet 3 04/10/20 24 Active losartan (COZAAR) 50 mg tabletIndications :Essential hypertension Take 1 Tablet (50 mg) by mouth once daily. 90 Tablet 3 04/10/20 24 Active nitroglycerin (NITROSTAT) 0.4 mg sublingual tabletIndications :ASCVD (arteriosclerotic cardiovascular disease) Place 1 Tablet (0.4 mg) under the tongue every 5 minutes if needed for Chest Pain. Up to 3 tablets in 15 minutes. 25 Tablet 3 04/10/20 24 Active Lactobacillus acidophilus (PROBIOTIC ACIDOPHILUS ORAL) Take by mouth once daily if needed. Active ciclopirox (CICLODAN) 8 % topical solutionIndicatio ns:Onychomycosis Apply topically to affected area(s) at bedtime. Apply solution once daily to affected nails with applicator brush, preferably at bedtime or 8 hours before washing; remove with alcohol every 7 days 6.6 mL 11 12/24/19 25 Active inclisiran 284 mg/1.5 mL subcutaneous syringe Inject 284 mg subcutaneous. Once every 6 months Active isosorbide mononitrate 30 mg extended release tablet 24 HourIndications:O ther forms of angina pectoris,Chest pain, unspecified type Take 0.5 Tablets (15 mg) by mouth once daily. 30 Tablet 03/26/20 25 Active predniSONE 20 mg tabletIndications :Allergy to iodine Take 60 mg (3 tablets) on the evening of 04/01/2025. AND take 60 mg (3 tablets) the morning of 04/02/2025 6 Tablet 03/26/20 25 Active Graduated Compression StockingsIndicati ons:Lymphedema of both lower extremities For personal use. Length: calf Strength: 20-30 mmHg 1 Packet 06/08/20 23 025 Discontinued (Pharmacist change per medication history (E-cancel not sent)) methylPREDNISolon e (Medrol, Clark,) 4 mg tabletIndications :Calcific tendonitis of left shoulder,Bursitis of left shoulder Take by mouth as instructed per packaging. 21 Tablet 02/11/20 25 025 Discontinued (Pharmacist change per medication history (E-cancel not sent)) Active Problems Problem Noted Date Diagnosed Date H. pylori infection 06/03/2022 Overview (06/08/2022): EGD 05/2022 H. pylori infection with intestinal metaplasia, recommend EGD in 3 years Gastric intestinal metaplasia 06/03/2022 Overview (06/08/2022): EGD 05/2022 H. pylori infection with intestinal metaplasia, recommend EGD in 3 years PAD (peripheral artery disease) 04/13/2022 Diverticulosis 08/19/2021 Former smoker 04/25/2018 ASCVD (arteriosclerotic cardiovascular disease) 04/25/2018 Overview (02/26/2024): -CT coronary angiogram in 2012 Total calcium socre of 59.6; 75% for age and sex - angiogram 04/26/2018: s/p JOSE DAVID pRCA; residual 70% dCX - CCTA 07/29/2021:Patent right coronary stent but with moderately severe focal soft plaque stenosis post-stent - angiogram 08/12/2021 - Dyspnea 04/25/2018 Osteopenia 06/09/2015 Chest pain 09/11/2013 Hyperlipidemia 11/07/2012 Overview (04/25/2018): -Intolerance to Pravachol, Crestor, Vytorin, Zetia, Niacin, and Welchol Elevated blood sugar 11/07/2012 Hypertension 12/14/2007 Dermatophytosis of nail 02/20/2007 Family history of ischemic heart disease Statin intolerance GERD (gastroesophageal reflux disease) Overview (04/20/2017): EGD 03/2017 atrophic gastritis, no Ramires's Vitamin D deficiency Overview (03/12/2013): 02/2012: 8.1 Resolved Problems Problem Noted Date Diagnosed Date Resolved Date Tobacco use disorder 012 Swelling, mass, or lump in head and neck 07/12/2012 Need for prophylactic hormon e replacement therapy (postmenopausal) 07/12/2012 Encounters Date Type Department Care Team Description 04/02/2025 5:31 AM CDT - 04/02/2025 12:57 PM CDT Hospital Encounter [facility] [address] [place] [address] Mitzy Carbajal MD Chest pain, unspecified type (Primary Dx); Other forms of angina pectoris; Family history of ischemic heart disease; ASCVD (arteriosclerotic cardiovascular disease); SOB (shortness of breath) Discharge Disposition: Home Self Care 04/02/2025 Travel 03/26/2025 1:00 PM CDT Orders Only [facility] [address] [facility] [address] [place] [address] Lab 03/26/2025 11:00 AM CDT Office Visit [facility] [address] [facility] [address] [place] [address] Annamaria Carrington NP Follow Up (LUCI PER FIONA RAMOS- CHEST PRESSURE- SOB ON EXERTION. PT states feeling ok but occ lightheadedness. She is also experiencing SOB) 03/26/2025 Travel 03/24/2025 Telephone [facility] [address] [place] [address] Paramjit Gomes MD Concerns 02/05/2025 Medical Messaging [facility] [address] [place] [address] Bob Harrison MD Left arm problem and pain progression. 01/27/2025 11:00 AM [employer] Office Visit [facility] [address] [place] [address] Bob Harrison MD Musculoskeletal Problem (Follow up left shoulder pain, had an ultrasound guided injection last on 12/19/24) 01/27/2025 Travel from Last 3 Months Immunizations Immunization Administration Dates Next Due Influenza, High-dose Quadrivalent [...] had tom cardial infarction in her 30's Cancer-ovarian No Family History Relation Name Status Comments Father Mother (Age [...] 0 04/10/2024 Social Connections Answer Date Recorded Do you often feel lonely or isolated from those around you? 0 02/26/2024 Financial Resource Strain Answer Date R ecorded Difficulty of Paying Living Expenses 3 02/26/2024 Difficulty of Paying Living Expenses Not on file 02/26/2024 Food Insecurity Answer Date Recorded Do you worry your food will run out before you are able to buy more? 1 02/26/2024 Transportation Needs Answer Date Record ed Does lack of transportation keep you from medica l appointments? 1 02/26/2024 Does lack of transportation keep you from work, meetings or getting things that you need? 1 02/26/2024 Housing Stability Answer Date Recorded What is your housing situation today? 1 02/26/2024 Interpersonal Safety Answer Date Record ed Are you being hit, kicked, p ushed or yelled at (see row info)? No 04/02/2025 Interpersonal Safety Abuse 12 - 18 Not on file 04/02/2025 Interpersonal Safety Ambulatory Vulnerability No t on file 04/02/2025 Utilities Answer Date Recorded Do you have trouble paying f or utilities (for example, heat, electricity, water, phone)? 1 02/26/2024 Comments No Sex and Gender Information Value Date Recorded Sex Assigned at Not on file Legal Sex Female 5:40 AM [employer] Gender Identity Not on file Sexual Orientation Not on file Obstetrics History Last Filed Vital Signs Vital Sign Reading Time Taken Comments Blood Pressure 126/64 04/02/2025 12:55 PM CDT Pulse 82 04/02/2025 12:55 PM CDT Temperature 36.1 C (97 F) 04/02/2025 8:45 AM CDT Respiratory Rate 18 10/04/2024 10:5 8 AM [employer] Oxygen Saturation 94% 04/02/2025 12: 55 PM CDT Inhaled Oxygen Concentration - - Weight 77.4 kg (170 lb 11.2 oz) 04/02/2025 6:09 AM CDT Height 157.5 cm (5' 2) 04/02/2025 6:09 AM CDT Body Mass Index 31.22 04/02/2025 6:09 AM CDT Plan of Treatment Upcoming Encounters Date Type Department Care Team (Late st Contact Info) Description 04/15/2025 10:30 AM CDT Appointment [address] [address] 05/07/2025 1:00 PM CDT Office Visit [facility] [address] [address] [place] [address] [address] Health Maintenance Due Date Last Done Comments Zoster (shingles) series for age 50+ (1 of 2) 1996 RSV vaccine for adults or (1 - 1-dose 75+ series) 2021 Tetanus booster 02/12/2023 02/12/2013, 02/01/2000 COVID-19 vaccine series (2023- season) 2024 Depression screening for age 12+ 04/10/2025 04/10/2024, 04/12/2023, 04/11/2023, Additional history exists Medicare Wellness for age 65+ 04/11/2025, 04/11/2023, 04/08/2021 Influenza Vaccine (Season Ended) 2025 10/05/2022, 09/25/2019, 08/22/2017, Additional history exists BMI (ht and wt on same day) for age 18+ 03/26/2026 03/26/2025, 08/15/2024, 04/10/2024, Additional history exists Tdap Completed 02/12/2013 DEXA/DXA scan for age 65+ Completed 06/04/2015, Pneumococcal series for age 50+ Completed , 04/08/2021 Hepatitis C screening for ag e 18-79 Completed 04/10/2024 Procedures Procedure Name Priority Date/Time Associated Diagnosis Comments CVL CORONARY ANGIOGRAM POSS PCI LUCI 04/02/2025 8:22 AM CDT Other forms of angina pectoris Family history of ischemic heart disease ASCVD (arteriosclerotic cardiovascular disease) Chest pain, unspecified type SOB (shortness of breath) CBC W PLT NO DIFF LUCI 04/02/2025 6:1 4 AM CDT BASIC METABOLIC PANEL [facility] 04/02/2025 6:14 AM CDT EXTRA TUBE GOLD/SST Today 04/02/2025 6:09 AM CDT COMP METABOLIC PANEL Routine 03/26/2025 12:49 PM CDT Preprocedural cardiovascular examination LIPID PANEL Routine 03/26/2025 12:49 PM CDT Preprocedural cardiovascular examination EKG 12 LEAD Today 03/26/2025 10:54 AM CDT Other forms of angina pectoris ANTI HCV Routine 04/10/2024 12:15 PM CDT Need for hepatitis C screening test XR DXA BONE DENSITY 2 SITES AXIAL Routine 06/04/2015 4:39 PM CDT Menopausal state from Last 3 Months or Most Recently Relevant to Health Maintenance Results * CVL CORONARY ANGIOGRAM POSS PCI (04/02/2025 8:22 AM CDT) Anatomical Region Laterality Modality X-Ray Angiograph y, X-Ray Angiography 04/02/2025 8:22 AM CDT Narrative Transcriptions Mitzy Carbajal MD - 04/02/2025 9:08 AM CDT [facility] at [facility] Cardiac Catheterization Report Name: CYNTHIA MEDINA Event Date: 04/02/2025 08:22 [facility] ID #: [id number] DANITA #: [id number] Patient Class: Outpatient Diagnostic Physician: MITZY CARBAJAL [facility] Referring Physician: Primary Care Physician: JUSTINE GIBSON Date: 1945 Gender: Female Age: 79 Summary/Conclusions PRESENTATION / INDICATIONS * Dyspnea * Coronary Artery Disease: PCI of the RCA 04/26/2018 DIAGNOSTIC - CORONARY * Two vessel coronary disease in a right dominant system ? Moderate small LCX disease ? The RCA has patent stents in it's proximal to distal segments from aprevious procedure. LEFT VENTRICULAR FUNCTION ? LV Pressure = 137/13. RECOMMENDATIONS & PLAN * Medical Rx * Evaluate for non-coronary etiology of symptoms Consent & [place] Protocol The risks, benefits, and alternatives of the procedure were discussed withthe patient and written informed consent was obtained. [place] protocol was followed. TIME OUT conducted just prior tostarting procedure confirmed patient identity, site/side, procedure,patient position, and availability of correct equipment and implants (ifapplicable). Staff Name Title MITZY CARBAJAL Diagnostic Hospital Director Pamela Gordon RN Nurse Yousuf Damon CVT Scrub Sammy Cormier CVT Monitor Karey Dominguez Fellow Procedures ? Ultrasound Guided Vascular Access ? Coronary Angiogram ? Left Heart Cath No Ventriculogram Procedure Comments VASCULAR ACCESS * Using ultrasound guidance and a percutaneous technique, the right radialartery was accessed. Ultrasound was used to confirm vessel patency,localizing needle into the lumen of the vessel. An image was saved for themedical record. Diagnostic Findings * Left Main Coronary Artery ? The LMCA is free of significant disease. * Left Anterior Descending ? The LAD is free of significant disease. ? 30% stenosis in the 1st Diagonal. * Circumflex ? 50% diffuse stenosis in the Proximal Circumflex. The distal vessel issmall. * Right Coronary Artery ? The RCA is dominant, has patent stents in it's proximal to distalsegments from a previous procedure, and is free of significant disease. ? 40% stenosis in the RPAV. Lesion Information Lesion # Vessel Segment Lesion Length Lesion Details 1st Diagonal Proximal Circumflex RPAV Hemodynamics State: Baseline Pressures (mmHg) Site Systolic Diastolic End Diastolic A Wave V Wave Mean AO 132 62 103 LV 137 5 13 LV 123 -1 12 AO 130 61 89 Procedure Details Estimated Blood Loss: < 30 ml Specimen Collected: None Level of Sedation Achieved: Moderate Procedure Start: 08:22 Procedure End: 08:48 Procedure Time: 26 min Fluoroscopy Time: 3 min Cumulative Air Kerma: 152 mGy DAP: 930 uGy/M2 Contrast: Omnipaque (low-osmolar), 30 ml Physiologic Data Weight: 77.1 kg BSA: 1.78 m2 Vascular Access Time Access Sheath Size 08:25 Right Radial Artery, sheath inserted Complications ? No Complications Medications Ordered and Administered Start Time Stop Time Medication Dose Units Route Ordered By Given By 08:20 Fentanyl 50 mcg IV Mitzy Carbajal Leesa RN 08:20 Versed 1.5 mg IV Mitzy Carbajal Leesa RN 08:21 Zofran (Ondansetron) 4 mg IV Mitzy Carbajal Leesa RN 08:22 1% Lidocaine 2 ml Subcut Mitzy Carbajal Jaskanwal 08:23 O2 2 l per min Nasal cannula 08:24 Verapamil 3 mg IA Mitzy Carbajal Jaskanwal 08:26 Versed 0.5 mg IV Mitzy Carbajal Leesa RN 08:26 Heparin 5000 units IV Mitzy Carbajal Leesa RN 08:26 Fentanyl 25 mcg IV Mitzy Carbajal Leesa RN 08:26 Nitroglycerin 200 mcg Mitzy Stapleton Jaskanwal 08:27 O2 4 l per min Nasal cannula 08:46 Fentanyl 25 mcg Mitzy Gonzales Leesa RN I personally monitored the patient?s conscious sedation during theprocedure. Conscious sedation starts with the first sedation medication dose ofFentanyl or Versed and ends when the procedure is completed, the patientis stable for recovery status, and the physician or other qualified healthcare professional providing the sedation ends personal [id number] time with the patient. The medications listed above were verbally ordered by me and read back tome as documented above. Refer to the procedure log report for additional case details. electronically signed on 04/02/2025 9:08:45 AM with status of Final Mitzy Carbajal MD [address] [address] (p) [phone](f) us Annamaria Carrington NP CV IMAGING Edited Res ult - Final * (ABNORMAL) CBC with Platelets no Differential (04/02/2025 6:14 AM CDT) WHITE BLOOD COUNT 12.1(H) 4.5 - 11.0 thou/cu mm 04/02/2025 6:32 AM CDT [facility] RED BLOOD COUNT 4.98 4.00 - 5.20 mil/cu mm 04/02/2025 6:32 AM CDT [facility] HEMOGLOBIN 14.6 12.0 - 16.0 g/dL 04/02/2025 6:32 AM CDT [facility] HEMATOCRIT 43.5 33.0 - 51.0 % 04/02/2025 6:32 AM CDT [facility] MCV 87 80 - 100 fL 04/02/2025 6:32 AM CDT [facility] MCH 29.3 26.0 - 34.0 pg 04/02/2025 6:32 AM CDT [facility] MCHC 33.6 32.0 - 36.0 g/dL 04/02/2025 6:32 AM CDT [facility] RDW 13.5 11.5 - 15.5 % 04/02/2025 6:32 AM CDT [facility] PLATELET COUNT 186 140 - 440 thou/cu mm 04/02/2025 6:32 AM CDT [facility] MPV 12.6(H) 6.5 - 11.0 fL 04/02/2025 6:32 AM CDT [facility] NRBC 0.0 % 04/02/2025 6:32 AM CDT [facility] ABS NRBC 0.0 thou /cu mm 04/02/2025 6:32 AM CDT [facility] Blood BLOOD SPECIMEN / Unknown Venipuncture / Unknown 04/02/2025 6:14 AM CDT 04/02/2025 6:[address] [facility] - 04/02/2025 6:32 AM CDT If not done within past 14 days. Nurse to release order. us Mitzy Carbajal MD HEMATOLOGY Final Result [facility] [address] [place] [address], * (ABNORMAL) Basic Metabolic Panel (04/02/2025 6:14 AM CDT) SODIUM 140 136 - 145 mmol/L 04/02/2025 7:10 AM CDT [facility] POTASSIUM 3.6 3.5 - 5.1 mmol/L 04/02/2025 7:10 AM CDT [facility] CHLORIDE 101 98 - 107 mmol/L 04/02/2025 7:10 AM CDT [facility] CO2,TOTAL 25 22 - 29 mmol/L 04/02/2025 7:10 AM CDT [facility] ANION GAP 14 5 - 18 04/02/2025 7:10 AM T [facility] GLUCOSE 146(H) 70 - 99 mg/dL 04/02/2025 7:10 AM CDT [facility] CALCIUM 9.8 8.8 - 10.4 mg/dL 04/02/2025 7:10 AM T [facility] Comment: Reference ranges for this test were updated on 10/01/2024 to reflect our healthy population more accurately. Reference range changes are not retroactively applied to results, but previous results using the same methodology can be interpreted in the context of the new reference range. BUN 21 8 - 23 mg/dL 04/02/2025 7:10 AM CDT [facility] CREATININE 0.90 0.50 - 0.90 mg/dL 04/02/2025 7:10 AM T [facility] BUN/CREAT RATIO 23(H) 10 - 20 7:10 AM T [facility] eGFR 66(L) >90 mL/min/1. 73m2 04/02/2025 7:10 AM T [facility] Comment:As of 2022, eG FR is calculated by the CKD-EPI creatinine equation without race adjustment. eGFR can be influenced by muscle mass, exercise, and diet. The reported eGFR is an estimation only and is only applicable if the renal function is stable. Blood BLOOD SPECIMEN / Unknown Venipuncture / Unknown 04/02/2025 6:14 AM CDT 04/02/2025 6:19 AM CDT Mitzy Carbajal MD CHEMISTRY Final Result [facility] [address] [place] [address], [place] * EXTRA TUBE GOLD/SST (04/02/2025 6:09 AM CDT) Blood BLOOD SPECIMEN / Unknown Extra Tube / Unknown 04/02/2025 6:09 AM CDT 04/02/2025 6:20 AM CDT Mitzy Carbajal MD LABORATORY Final Result [facility] [address] [place] [address], [place] * (ABNORMAL) LIPID PANEL (03/26/2025 12:49 PM CDT) CHOLESTEROL, TOTAL 196 <200 mg/dL [facility] HDL CHOLESTEROL 41(L) > OR = 50 mg/dL [facility] TRIGLYCERIDES 362(H) <150 mg/dL [facility] Comment: If a non-fasting specimen was collected, consider repeat triglyceride testing on a fasting specimen if clinically indicated. Pat et al. J. of Clin. Lipidol. 2015;9:129-169. LDL-CHOLESTEROL 107(H) mg/dL (calc) [facility] Comment: Reference range: <100 Desirable range <100 mg/dL for primary prevention; <70 mg/dL for patients with CHD or diabetic patients with > or = 2 CHD risk factors. LDL-C is now calculated using the Satish-Morris calculation, which is a validated novel method providing better accuracy than the Friedewald equation in the estimation of LDL-C. Satish SS et al. ENRRIQUE. 2013;310(19): 4659-7341 (http://education.Bill.com/faq/EGM244) CHOL/HDLC RATIO 4.8 <5.0 (calc) [facility] NON HDL CHOLESTEROL 155(H) <130 mg/dL (calc) [facility] Comment: For patients with diabetes plus 1 major ASCVD risk factor, treating to a non-HDL-C goal of <100 mg/dL (LDL-C of <70 mg/dL) is considered a therapeutic option. Blood BLOOD SPECIMEN / Unknown 03/26/2025 12:49 PM CDT 03/26/2025 12:53 PM CDT Annamaria Carrington NP CHEMISTRY Final Resu lt [facility] [address] [place] [address], [facility] [address] [place] [address] * COMP METABOLIC PANEL (03/26/2025 12:49 PM CDT) [facility] GLUCOSE 93 65 - 99 mg/dL [facility] Comment: Fasting reference interval UREA NITROGEN (BUN) 18 7 - 25 mg/dL [facility] CREATININE 0.81 0.60 - 1.00 mg/dL [facility] EGFR 74 > OR = 60 mL/min/1. 73m2 [facility] BUN/CREATININE RATIO SEE NOTE: 6 - 22 (calc) [facility] Comment: Not Reported: BUN and Creatinine are within reference range. SODIUM 141 135 - 146 mmol/L [facility] POTASSIUM 3.7 3.5 - 5.3 mmol/L [facility] CHLORIDE 100 98 - 110 mmol/L [facility] CARBON DIOXIDE 31 20 - 32 mmol/L [facility] CALCIUM 9.5 8.6 - 10.4 mg/dL [facility] PROTEIN, TOTAL 7.3 6.1 - 8.1 g/dL [facility] ALBUMIN 4.5 3.6 - 5.1 g/dL [facility] GLOBULIN 2.8 1.9 - 3.7 g/dL (calc) [facility] ALBUMIN/GLOBULIN RATIO 1.6 1.0 - 2.5 (calc) [facility] BILIRUBIN, TOTAL 0.7 0.2 - 1.2 mg/dL [facility] ALKALINE PHOSPHATASE 83 37 - 153 U/L [facility] AST 17 10 - 35 U/L [facility] ALT 17 6 - 29 U/L [facility] Blood BLOOD SPECIMEN / Unknown 03/26/2025 12:49 PM CDT 03/26/2025 12:53 PM CDT Annamaria Carrington NP CHEMISTRY Final Resu lt [facility] [address] [place] [address], [facility] [address] [place] [address] * EKG 12 LEAD (03/26/2025 10:54 AM CDT) Interpretation Sinus rhythm with occasional Premature ventricular complexes Left axis deviation Abnormal ECG When compared with ECG of 12-Aug-2021 09:01, Premature ventricular complexes are now Present Ventricular Rate 78 BPM Atrial Rate 78 BPM P-R Interval 166 ms QRS Duration 102 ms QT 408 ms QTc 465 ms P Parker 67 degrees R Parker -56 degrees T Parker 61 degrees 03/26/2025 10:5 4 AM CDT 03/28/2025 10:50 AM CDT us Annamaria Carrington [employer] EKG ORD Final Resu lt * ANTI HCV [[id number]] (04/10/2024 12:15 PM CDT) HEPATITIS C ANTIBODY Non-Reacti ve Non-React alayna 04/11/2024 5:50 AM CDT [facility] Comment:Please note, per www .CDC.gov: If [...] 12:15 PM CDT 04/10/2024 12:15 PM CDT us Justine Gibson MD SEND OUTS Final Re sult [facility] [address] [place] [address], [place] * (ABNORMAL) XR DXA BONE DENSITY 2 SITES (06/04/2015 4:39 PM CDT) Anatomical Region Laterality Modality Spine, HIPS, HIPL, HIPR Other Narrative 06/08/2015 12:06 PM CDT Please see scanned document for results of this study. Justine Gibson MD DEXA Final Re sult from Last 3 Months or Most Recently Relevant to Health Maintenance Insurance MEDICARE PART B HB ONLY MEDICARE PART A HB ONLY [facility] MEDICARE PB ONLY [facility] [facility] [employer] MEDICARE PART B HB ONLY Advance Directives * Full Code (Latest Code Status on File) Date Activated Date Inactivated Comments 04/02/2025 8:50 AM 04/02/2025 3:08 PM Question Answer Comments Code Status Discussion: Unable to Assess Preferences, Provider to review later * Full Code Date Activated Date Inactivated Comments 08/12/2021 8:38 AM 08/12/2021 4:33 PM Question Answer Comments Code Status Discussion: Discussed * Full Code Date Activated Date Inactivated Comments 04/26/2018 6:50 AM 04/26/2018 3:48 PM Care Teams Emergency Communications Officer Relationship Specialty Start Date End Date Votel, Justine Hernandez MD [address] [place] [address] PCP - General Family Practice 04/11/23 David Price MD Cardiology Cardiovascular Disease 12/13/12
--- NOTE | 2025-04-06 09:14 | ED_ITS ---
HPI - Dizziness General Time Seen by Provider: 09:14 Date Seen: 04/06/25 Chief Complaint: Dizziness/Vertigo Stated Complaint: dizziness Time Seen by Provider: 04/06/25 09:14 Source: patient and RN notes reviewed Mode of arrival: ambulatory Limitations: no limitations History of Present Illness HPI Narrative: Cynthia is a 79-year-old female with multiple medical issues including diverticulosis, coronary artery disease with history of stent placement and recent angiogram, fatigue who comes to the emergency room with her complaining of extreme fatigue and dizziness. Patient had the onset of dizziness which we do ascertain as lightheadedness yesterday around noon. It has gotten worse today and is associated with some balance issues but no falls. Patient states that yesterday she also had a lot of upper abdominal epigastric pain that has resolved today. She does have a history of H pylori. She notes that yesterday her abdomen is very distended as well and thought that it was her diverticulosis acting up. That has improved today and she is passing gas. She notes that the fatigue she is experiencing today is quite profound. She has no cough cold or congestion. Her states that the angiogram was done because fatigue was 1 of her complaints before her last stent placement. We do ascertain however that the fatigue today is much worse than it has been. Notes some tingling in her hands but upon further reflection this has been present previously. Denies visual changes. Denies any recent head trauma and is not currently on any blood thinners. Angiogram on 04/02 was at [facility] and there does not appear to have been any complications. Patient and her have not heard of the results at this point. Related Data Home Medications ?Medication ?Instructions ?Recorded ?Confirmed asprin 81 mg PO DAILY 10/07/22 04/06/25 calcium carbonate (Tums Ultra) 400 mg PO ONCE 10/07/22 04/06/25 chlorthalidone 25 mg tablet 25 mg PO DAILY 10/07/22 04/06/25 cholecalciferol (vitamin D3) 125 125 mcg PO QDAY 10/07/22 04/06/25 mcg (5,000 unit) capsule losartan 50 mg tablet 50 mg PO DAILY 10/07/22 04/06/25 nitroglycerin 0.4 mg sublingual 0.4 mg sublingual .prn 10/07/22 04/06/25 tablet pantoprazole 20 mg tablet,delayed mg PO 10/07/22 04/25/23 release potassium chloride 10 mEq meq PO 10/07/22 04/25/23 tablet,extended release(part/cryst) acetaminophen 500 mg tablet 500 mg PO Q6H PRN 04/25/23 04/06/25 (Tylenol Extra Strength) psyllium husk 0.4 gram capsule 0.4 g PO QDAY 04/25/23 04/06/25 (Metamucil) ciclopirox 8 % topical solution topical 04/06/25 isosorbide mononitrate 30 mg 30 mg PO DAILY 04/06/25 04/06/25 tablet,extended release 24 hr Allergies Allergy/AdvReac Type Severity Reaction Status Date / Time codeine Allergy Verified 04/06/25 09:09 hydrocodone Allergy Verified 04/06/25 09:09 iodine Allergy Verified 04/06/25 09:09 lisinopril Allergy Verified 04/06/25 09:09 meperidine (From Demerol) Allergy Verified 04/06/25 09:09 nitrofurantoin (From Allergy Verified 04/06/25 09:09 Macrodantin) oxycodone Allergy Verified 04/06/25 09:09 Penicillins Allergy Verified 04/06/25 09:09 [id number] Reductase Allergy Verified 04/23/24 21:22 Inhibitor Sulfa (Sulfonamide Allergy Verified 04/06/25 09:09 Antibiotics) tetracycline Allergy Verified 04/06/25 09:09 hydromorphone (From Dilaudid) AdvReac Verified 04/06/25 09:09 Review of Systems Status of ROS: Reports: 10 or more systems reviewed and unremarkable except as noted in History and below Const: Reports: fatigue; Denies: fever or chills Eyes: Denies: change in vision ENMT: Denies: throat pain, neck pain or nasal congestion Cardio: Reports: lightheadedness; Denies: chest pain, swelling of feet/ankles or shortness of breath with exertion Resp: Denies: shortness of breath or cough GI: Reports: nausea; Denies: abdominal pain, vomiting or diarrhea : Denies: painful urination Musculo: Denies: neck pain Neuro: Denies: headache Endo: Reports: fatigue [facility] Medical History H. 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) Surgical History History of cholecystectomy (~08/2021) ?Z90.49 - Acquired absence of other specified parts of digestive tract (ICD- 10) History of tonsillectomy ?Z90.89 - Acquired absence of other organs (ICD-10) History of hysterectomy ?Z90.710 - Acquired absence of both cervix and uterus (ICD-10) Social History Narrative: -[place] Smoking Status: Former smoker What tobacco products do you use: cigarettes Smoking quit date/years: >15 years ago Do you use any of these nicotine containing products: None Second hand tobacco smoke exposure: No How often do you have a drink containing alcohol: 2-4 times a month How many standard drinks containing alcohol do you have on a typical day: 1 or 2 How often do you have six or more drinks on one occasion: Never AUDIT-C Alcohol total score: 2 Non-prescribed substance use: denies use service: No Exam Narrative: Exam Narrative: Alert and oriented. History is quite detailed and hops from subject to subject in system to system. Challenging to ascertain old, subacute and acute symptoms. EOM is full and pupils equal round. Face symmetrical with eyebrow raise smile. Speech is normal mentation is normal. Neck is supple without lymphadenopathy. Heart with regular rate and rhythm. Lungs are clear. Abdomen is soft. Tenderness with palpation noted in various parts of the abdomen that patient notes is chronic and not new. Lower extremities without edema. Upper extremity strength and motor intact. Lower extremity strength and motor is intact. Const: Vital Signs, click to edit/add: Vital Signs - 24 hr 04/06/25 08:51 04/06/25 11:01 04/06/25 11:30 Temperature 97.1 F L Pulse Rate 83 81 Pulse Rate [Pulse Oximeter] 81 Respiratory Rate 18 13 14 Blood Pressure Blood Pressure [Ri ght Upper Arm] 153/74 H Pulse Oximetry 95 97 92 Oxygen Delivery Me thod Room Air 04/06/25 12:00 04/06/25 12:15 04/06/25 12:21 Temperature Pulse Rate 76 82 83 Pulse Rate [Pulse Oximeter] Respiratory Rate 14 16 23 Blood Pressure 145/83 H Blood Pressure [Ri ght Upper Arm] Pulse Oximetry 89 92 96 Oxygen Delivery Me thod Documenting provider has reviewed patient's vital signs: yes Course Course ED Course: Differential diagnosis includes but is not limited to acute stroke, inner ear dysfunction, viral illness, acute coronary event, electrolyte abnormality, UTI. Will attempt IV placement and do CT/CTA and request neuro consult. Also requesting EKG, troponin, CBC, comprehensive panel, urinalysis. Certainly upper abdominal pain could be anginal equivalent. It is absent today. Reevaluation(s) Reevaluation #1: Unfortunately unable to place IV but fortunately were able to draw blood. Will proceed with noncontrast head CT. Reevaluation #2: Head CT reassuring at this time. Unfortunately no availability for MRI today but will place order so patient will received tomorrow. At this time she continues to be dizzy. I am unable to really exacerbate this with head movement and dizziness appears to be persistent. Given this and conversation with Neurology will have patient stay overnight and proceed with MRI tomorrow morning. Will give baby aspirin and Ativan 0.5 mg p.o. at this time. Consultations Consultation #1: I had the pleasure of speaking to Dr. Joyner. At this time does recommend MRI. Vital Signs Vital signs: Initial Vital Signs Temperature 97.1 F L 04/06/25 08:51 Temperature Source Temporal Artery Scan 04/06/25 08:51 Pulse Rate 81 04/06/25 08:51 Respiratory Rate 18 04/06/25 08:51 Blood Pressure 153/74 H 04/06/25 08:51 Blood Pressure Mean 100 04/06/25 08:51 Blood Pressure Position Sitting 04/06/25 08:51 Pulse Oximetry 95 04/06/25 08:51 Oxygen Delivery Method Room Air 04/06/25 08:51 Vital Signs Temperature 97.1 F L 04/06/25 08:51 Pulse Rate 81 04/06/25 08:51 Respiratory Rate 18 04/06/25 08:51 Blood Pressure 153/74 H 04/06/25 08:51 Pulse Oximetry 95 04/06/25 08:51 Oxygen Delivery Method Room Air 04/06/25 08:51 Temperature 97.1 F L 04/06/25 08:51 Pulse Rate 83 04/06/25 12:21 Respiratory Rate 23 04/06/25 12:21 Blood Pressure 145/83 H 04/06/25 12:21 Pulse Oximetry 96 04/06/25 12:21 Oxygen Delivery Method Room Air 04/06/25 08:51 Medications Administered Medications: Discontinued Medications Generic Name Dose Route Start Last Admin Trade Name Sharif PRN Reason Stop Dose Admin Diphenhydramine HCl 50 mg 04/06/25 09:51 04/06/25 10:06 Diphenhydramine 25 Mg Capsule PO 04/06/25 09:52 50 mg ONCE ONE Administration Hydrocortisone Sodium Succinate 200 mg 04/06/25 09:51 04/06/25 12:32 Hydrocortisone Sod Succinate 50 Mg/Ml Inj IVP 04/06/25 09:52 Not Given ONCE ONE MDM - Dizziness MDM Narrative Medical decision making narrative: 1. Dizziness-at this time head CT reassuring. Cannot rule out small thromboembolic stroke however. MRI will be scheduled for tomorrow. Ativan 0.5 mg p.o. at this time. Patient had received Benadryl 50 mg p.o. as a pretreatment for IV contrast for the CTA. Unfortunately nursing staff was unable to place IV and thus the CTA was canceled. 2. Abdominal pain-laboratory values reassuring with normal white count electrolytes CRP and urinalysis. Abdominal exam does not show any incarcerated hernia or peritoneal signs. Of note, EKG and troponin negative with the epigastric pain yesterday be possibly did being anginal equivalent. 3. Fatigue-triple viral swab negative as is chest x-ray. Also of note TSH within normal limits. No evidence of UTI. 4. Disposition-patient care transferred to Dr. De Jesus. Patient will be transferred to [facility]. Medical Records Attestation: I reviewed the patient's medical records. Lab Data Attestation: I reviewed the patient's lab results. Labs: Lab Results 04/06/25 04/06/25 04/06/25 Range/Units 09:28 09:30 09:46 WBC 6.68 (4.50-11.00) K/uL RBC 4.89 (4.00-5.20) m/uL Hgb 14.2 (12.0-16.0) gm/dL Hct 43.4 (33.0-51.0) % MCV 89 (80-100) fL MCH 29 (26-34) pg MCHC 33 (32-36) gm/dL RDW Coeff of Rocio 13.2 (11.5-15.5) % Plt Count 162 (140-440) K/uL Neut % (Auto) 66.1 (42.0-72.0) % Lymph % (Auto) 21.7 (20-44) % [place] % (Auto) 10.2 (0.0-11.0) % Eos % (Auto) 1.0 (0.0-7.0) % Baso % (Auto) 0.6 (0.0-3.0) % Neut # (Auto) 4.41 (1.7-7.0) K/uL Lymph # (Auto) 1.45 (0.90-2.90) K/uL [place] # (Auto) 0.70 (0.00-0.90) K/UL Eos # (Auto) 0.07 (0.00-0.50) K/uL Baso # (Auto) 0.04 (0.00-0.30) K/uL Abs Immat Gran (auto) 0.03 (0.00-0.30) K/uL Imm/Tot Granulo (auto) 0.4 % Sodium 140 (135-149) mmol/L Potassium 3.5 L (3.6-5.1) mmol/L Chloride 101 (96-114) mmol/L Carbon Dioxide 29 (20-32) mmol/L Anion Gap 10 (7-15) mEq/L BUN 22 (7-30) mg/dL Creatinine 0.8 (0.5-1.5) mg/dL Estimated Creat Clear 36.67 Estimated GFR 75 ml/min Glucose 109 (60-115) mg/dL Calcium 9.7 (8.4-10.6) mg/dL Total Bilirubin 1.0 (0.1-1.5) mg/dL AST 30 (12-35) U/L ALT 24 (4-35) U/L Alkaline Phosphatase 82 (40-150) U/L C-Reactive Protein 1.0 (0.5-1.0) mg/dL Total Protein 7.5 (6.0-8.3) g/dL Albumin 4.4 (3.3-5.0) g/dL TSH 1.690 (0.270-4.20) uIU/mL Urine Color (Yellow) Urine Appearance (Clear) Urine pH (5.0-8.5) Ur Specific [place] (1.000-1.030) Urine Protein (Negative) Urine Glucose (UA) (Negative) Urine Ketones (Negative) Urine Blood (Negative) Urine Nitrite (Negative) Urine Bilirubin (Negative) Urine Urobilinogen (0.2-1.0) Ur Leukocyte Esterase (Negative) Urine RBC (0-2) Urine WBC (0-5) Ur Squamous Epith Cells (None-Few) Urine Bacteria (None) SARS-CoV-2 (PCR) Negative SARS-CoV-2 (Negative) Influenza Type A (PCR) Negative PCR FLU A (Negative) Influenza Type B (PCR) Negative PCR FLU B (Negative) RSV (PCR) Negative PCR RSV (Negative) Lab Acknowledgement POC Troponin I 0.00 L (0.01-0.04) ng/ml 04/06/25 04/06/25 Range/Units 09:52 10:55 WBC (4.50-11.00) K/uL RBC (4.00-5.20) m/uL Hgb (12.0-16.0) gm/dL Hct (33.0-51.0) % MCV (80-100) fL MCH (26-34) pg MCHC (32-36) gm/dL RDW Coeff of Rocio (11.5-15.5) % Plt Count (140-440) K/uL Neut % (Auto) (42.0-72.0) % Lymph % (Auto) (20-44) % [place] % (Auto) (0.0-11.0) % Eos % (Auto) (0.0-7.0) % Baso % (Auto) (0.0-3.0) % Neut # (Auto) (1.7-7.0) K/uL Lymph # (Auto) (0.90-2.90) K/uL [place] # (Auto) (0.00-0.90) K/UL Eos # (Auto) (0.00-0.50) K/uL Baso # (Auto) (0.00-0.30) K/uL Abs Immat Gran (auto) (0.00-0.30) K/uL Imm/Tot Granulo (auto) % Sodium (135-149) mmol/L Potassium (3.6-5.1) mmol/L Chloride (96-114) mmol/L Carbon Dioxide (20-32) mmol/L Anion Gap (7-15) mEq/L BUN (7-30) mg/dL Creatinine (0.5-1.5) mg/dL Estimated Creat Clear Estimated GFR ml/min Glucose (60-115) mg/dL Calcium (8.4-10.6) mg/dL Total Bilirubin (0.1-1.5) mg/dL AST (12-35) U/L ALT (4-35) U/L Alkaline Phosphatase (40-150) U/L C-Reactive Protein (0.5-1.0) mg/dL Total Protein (6.0-8.3) g/dL Albumin (3.3-5.0) g/dL TSH (0.270-4.20) uIU/mL Urine Color Yellow (Yellow) Urine Appearance Clear (Clear) Urine pH 7.0 (5.0-8.5) Ur Specific [place] 1.010 (1.000-1.030) Urine Protein Negative (Negative) Urine Glucose (UA) Negative (Negative) Urine Ketones Negative (Negative) Urine Blood Negative (Negative) Urine Nitrite Negative (Negative) Urine Bilirubin Negative (Negative) Urine Urobilinogen 0.2 (0.2-1.0) Ur Leukocyte Esterase Negative (Negative) Urine RBC 0-2 (0-2) Urine WBC 0-2 (0-5) Ur Squamous Epith Cells Few (None-Few) Urine Bacteria Few A (None) SARS-CoV-2 (PCR) (Negative) Influenza Type A (PCR) (Negative) Influenza Type B (PCR) (Negative) RSV (PCR) (Negative) Lab Acknowledgement Test Added POC Troponin I (0.01-0.04) ng/ml Imaging Data Chest x-ray: Attestation: I have reviewed the pertinent imaging results. Radiologist's impression: Cardiovasculature and mediastinum: Heart size is normal. Unremarkable mediastinum. Lungs and pleural spaces: Lungs are clear. No sign of infiltrate or mass. No sign of pleural effusion. No pneumothorax. Bones and soft tissues: No significant findings. IMPRESSION: Negative chest. CT scan - head: Attestation: I have reviewed the pertinent imaging results. My impression: I do not note any acute findings Radiologist's impression: PT HAS BEEN FEELING DIZZY, OFF BALANCE EXHAUSTED AND TIRED FOR A FEW DAYS- UNABLE TO GET IV ACCESS NO ANGIO WAS PERFORMED TECHNIQUE: CT of the head without contrast. Coronal and sagittal reformats. Bone and soft tissue algorithms. COMPARISON: No prior studies available for comparison at this institution. FINDINGS: No acute intracranial hemorrhage or extra-axial collection. No evidence of acute cortical infarction. No mass effect or midline shift. Normal parenchymal volume. No hydrocephalus. Mild regions of decreased attenuation within the periventricular and subcortical white matter of both cerebral hemispheres most likely reflect chronic microvascular ischemic disease and age related change in this patient. Vascular calcifications within the carotid siphons. Orbital contents are normal. No calvarial fractures. No lytic or sclerotic osseous lesions within the calvarium or skull base. Scalp and other imaged soft tissue structures are normal. Mastoid air cells are clear. Rightward deviation of the nasal septum. IMPRESSION: No acute intracranial abnormality. ECG Data Attestation: I personally reviewed and interpreted this ECG as follows: ECG interpretation date: 04/06/25 Interpretation: EKG by my read shows sinus rhythm at a rate of 78. QT and RI intervals within normal limits. Isolated flattening of the T-wave in aVL otherwise no acute ST or T-wave changes. Discharge Plan Discharge Prescriptions: No Action losartan 50 mg tablet 50 mg PO DAILY chlorthalidone 25 mg tablet 25 mg PO DAILY pantoprazole 20 mg tablet,delayed release (DR/EC) PO potassium chloride 10 mEq tablet,ER particles/crystals PO nitroglycerin 0.4 mg tablet, sublingual 0.4 mg sublingual .prn asprin 81 mg PO DAILY Patient Comments: enteric coated cholecalciferol (vitamin D3) 125 mcg (5,000 unit) capsule 125 mcg PO QDAY calcium carbonate [Tums Ultra] 400 mg calcium (1,000 mg) tablet,chewable 400 mg PO ONCE acetaminophen [Tylenol Extra Strength] 500 mg tablet 500 mg PO Q6H PRN psyllium husk [Metamucil] 0.4 gram capsule 0.4 g PO QDAY isosorbide mononitrate 30 mg tablet extended release 24 hr 30 mg PO DAILY Patient Comments: [NO ORIGINAL SIG] ciclopirox 8 % solution topical Follow Up/Referrals: John Johns MD [Primary Care Provider] -
--- NOTE | 2025-04-06 09:28 | CRLHL7_ITS ---
For Patients: As a result of the Century Cures Act, medical imaging exams and procedure reports are released immediately into your electronic medical record. You may view this report before your referring provider. If you have questions, please contact your health care provider. INDICATION: PT HAS BEEN FEELING DIZZY, OFF BALANCE EXHAUSTED AND TIRED FOR A FEW DAYS- UNABLE TO GET IV ACCESS NO ANGIO WAS PERFORMED TECHNIQUE: CT of the head without contrast. Coronal and sagittal reformats. Bone and soft tissue algorithms. COMPARISON: No prior studies available for comparison at this institution. FINDINGS: No acute intracranial hemorrhage or extra-axial collection. No evidence of acute cortical infarction. No mass effect or midline shift. Normal parenchymal volume. No hydrocephalus. Mild regions of decreased attenuation within the periventricular and subcortical white matter of both cerebral hemispheres most likely reflect chronic microvascular ischemic disease and age related change in this patient. Vascular calcifications within the carotid siphons. Orbital contents are normal. No calvarial fractures. No lytic or sclerotic osseous lesions within the calvarium or skull base. Scalp and other imaged soft tissue structures are normal. Mastoid air cells are clear. Rightward deviation of the nasal septum. IMPRESSION: No acute intracranial abnormality. Please note that all CT scans at this facility use dose modulation, iterative reconstruction, and/or weight-based dosing when appropriate to reduce radiation dose to as low as reasonably achievable. Dictated by Torres Arcos MD @ 04/06/2025 11:24:31 AM (Electronically Signed)
--- NOTE | 2025-04-06 09:30 | CRLHL7_ITS ---
For Patients: As a result of the Century Cures Act, medical imaging exams and procedure reports are released immediately into your electronic medical record. You may view this report before your referring provider. If you have questions, please contact your health care provider. INDICATION: Dizziness and lethargy. TECHNIQUE: Chest 1 views. COMPARISON: None. FINDINGS: Cardiovasculature and mediastinum: Heart size is normal. Unremarkable mediastinum. Lungs and pleural spaces: Lungs are clear. No sign of infiltrate or mass. No sign of pleural effusion. No pneumothorax. Bones and soft tissues: No significant findings. IMPRESSION: Negative chest. Dictated by Michael Cartwright MD @ 04/06/2025 11:40:22 AM (Electronically Signed)
--- OUTSIDE RECORDS SUMMARY | 2025-04-06 09:39 | XMS_ITS | Clinical Summary ---
Author Organization [facility] Address [address] [place] [id number] Care Team Providers Care Communications Electrician Supervisor Name Role Phone David Price MD Unavailable [phone]- [phone] VoteJustine garibay MD Primary Care Provider + [...] In Comment Field 05/14/2019 Back pain (major) Joxyyvu-Duu-Lrk Reductase Inhibitors *Unknown,*Unknown - Follow up needed [...] - 04/02/2025 12:57 PM CDT Hospital Encounter [facility] [address] [place] [address] Mitzy Carbajal MD Chest pain, unspecified type (Primary Dx); Other forms of angina pectoris; Family history of ischemic heart disease; ASCVD (arteriosclerotic cardiovascular disease); SOB (shortness of breath) Discharge Disposition: Home Self Care 04/02/2025 Travel 03/26/2025 1:00 PM CDT Orders Only [facility] [address] [facility] [address] [place] [address] Lab 03/26/2025 11:00 AM CDT Office Visit [facility] [address] [facility] [address] [place] [address] Annamaria Carrington NP Follow Up (LUCI PER FIONA RAMOS- CHEST PRESSURE- SOB ON EXERTION. PT states feeling ok but occ lightheadedness. She is also experiencing SOB) 03/26/2025 Travel 03/24/2025 Telephone [facility] [address] [place] [address] Paramjit Gomes MD Concerns 02/05/2025 Medical Messaging [facility] [address] [place] [address] Bob Harrison MD Left arm problem and pain progression. 01/27/2025 11:00 AM [employer] Office Visit [facility] [address] [place] [address] Bob Harrison MD Musculoskeletal Problem (Follow up [...] on file Legal Sex Female 5:40 AM [employer] Gender Identity Not on file Sexual Orientation Not on file Obstetrics History Last Filed Vital Signs Vital Sign Reading Time Taken Comments Blood Pressure 126/64 04/02/2025 12:55 PM CDT Pulse 82 04/02/2025 12:55 PM CDT Temperature 36.1 C (97 F) 04/02/2025 8:45 AM CDT Respiratory Rate 18 10/04/2024 10:5 8 AM [employer] Oxygen Saturation 94% 04/02/2025 12: 55 PM CDT Inhaled Oxygen Concentration - - Weight 77.4 kg (170 lb 11.2 oz) 04/02/2025 6:09 AM CDT Height 157.5 cm (5' 2) 04/02/2025 6:09 AM CDT Body Mass Index 31.22 04/02/2025 6:09 AM CDT Plan of Treatment Upcoming Encounters Date Type Department Care Team (Late st Contact Info) Description 04/15/2025 10:30 AM CDT Appointment [address] [address] 05/07/2025 1:00 PM CDT Office Visit [facility] [address] [address] [place] [address] [address] Health Maintenance Due Date Last Done Comments [...] 6:1 4 AM CDT BASIC METABOLIC PANEL [facility] 04/02/2025 6:14 AM CDT EXTRA TUBE GOLD/SST [...] Carbajal MD - 04/02/2025 9:08 AM CDT [facility] Cardiac Catheterization Report Name: CYNTHIA MEDINA Event Date: 04/02/2025 08:22 [facility] ID #: [id number] DANITA #: [id number] Patient Class: Outpatient Diagnostic Physician: MITZY CARBAJAL [facility] Referring Physician: Primary Care Physician: JUSTINE GIBSON [...] for non-coronary etiology of symptoms Consent & Rupert Protocol The risks, benefits, and alternatives of the procedure were discussed withthe patient and written informed consent was obtained. Rupert protocol was followed. TIME OUT conducted just prior tostarting procedure confirmed patient identity, site/side, procedure,patient position, and availability of correct equipment and implants (ifapplicable). Staff Name Title MITZY CARBAJAL Diagnostic It Security Architect Pamela Gordon RN Nurse Yousuf Damon CVT [...] healthcare professional providing the sedation ends personal pwxmkiieiqaquu-gl-ifvf time with the patient. The medications listed above were verbally ordered by me and read back tome as documented above. Refer to the procedure log report for additional case details. electronically signed on 04/02/2025 9:08:45 AM with status of Final Mitzy Carbajal MD [address] [address] (p) [phone](f) us Annamaria Carrington NP CV IMAGING Edited Res ult - Final * (ABNORMAL) CBC with Platelets no Differential (04/02/2025 6:14 AM CDT) WHITE BLOOD COUNT 12.1(H) 4.5 - 11.0 thou/cu mm 04/02/2025 6:32 AM CDT [facility] RED BLOOD COUNT 4.98 4.00 - 5.20 mil/cu mm 04/02/2025 6:32 AM CDT [facility] HEMOGLOBIN 14.6 12.0 - 16.0 g/dL 04/02/2025 6:32 AM CDT [facility] HEMATOCRIT 43.5 33.0 - 51.0 % 04/02/2025 6:32 AM CDT [facility] MCV 87 80 - 100 fL 04/02/2025 6:32 AM CDT [facility] MCH 29.3 26.0 - 34.0 pg 04/02/2025 6:32 AM CDT [facility] MCHC 33.6 32.0 - 36.0 g/dL 04/02/2025 6:32 AM CDT [facility] RDW 13.5 11.5 - 15.5 % 04/02/2025 6:32 AM CDT [facility] PLATELET COUNT 186 140 - 440 thou/cu mm 04/02/2025 6:32 AM CDT [facility] MPV 12.6(H) 6.5 - 11.0 fL 04/02/2025 6:32 AM CDT [facility] NRBC 0.0 % 04/02/2025 6:32 AM CDT [facility] ABS NRBC 0.0 thou /cu mm 04/02/2025 6:32 AM CDT [facility] Blood BLOOD SPECIMEN / Unknown Venipuncture / Unknown 04/02/2025 6:14 AM CDT 04/02/2025 6:19 AM CDT [facility] - 04/02/2025 6:32 AM CDT If not done within past 14 days. Nurse to release order. us Mitzy Carbajal MD HEMATOLOGY Final Result [facility] [address] [place] [address], * (ABNORMAL) Basic Metabolic Panel (04/02/2025 6:14 AM CDT) SODIUM 140 136 - 145 mmol/L 04/02/2025 7:10 AM CDT [facility] POTASSIUM 3.6 3.5 - 5.1 mmol/L 04/02/2025 7:10 AM CDT [facility] CHLORIDE 101 98 - 107 mmol/L 04/02/2025 7:10 AM CDT [facility] CO2,TOTAL 25 22 - 29 mmol/L 04/02/2025 7:10 AM CDT [facility] ANION GAP 14 5 - 18 04/02/2025 7:10 AM T [facility] GLUCOSE 146(H) 70 - 99 mg/dL 04/02/2025 7:10 AM CDT [facility] CALCIUM 9.8 8.8 - 10.4 mg/dL 04/02/2025 7:10 AM T [facility] Comment: Reference ranges for this test were updated on 10/01/2024 to reflect our healthy population more accurately. Reference range changes are not retroactively applied to results, but previous results using the same methodology can be interpreted in the context of the new reference range. BUN 21 8 - 23 mg/dL 04/02/2025 7:10 AM CDT [facility] CREATININE 0.90 0.50 - 0.90 mg/dL 04/02/2025 7:10 AM T [facility] BUN/CREAT RATIO 23(H) 10 - 20 7:10 AM T [facility] eGFR 66(L) >90 mL/min/1. 73m2 04/02/2025 7:10 AM T [facility] Comment:As of 2022, eG FR [...] CDT Mitzy Carbajal MD CHEMISTRY Final Result [facility] [address] [place] [address], [place] * EXTRA TUBE GOLD/SST (04/02/2025 6:09 AM CDT) Blood BLOOD SPECIMEN / Unknown Extra Tube / Unknown 04/02/2025 6:09 AM CDT 04/02/2025 6:20 AM CDT Mitzy Carbajal MD LABORATORY Final Result [facility] [address] [place] [address], [place] * (ABNORMAL) LIPID PANEL (03/26/2025 12:49 PM CDT) CHOLESTEROL, TOTAL 196 <200 mg/dL [facility] HDL CHOLESTEROL 41(L) > OR = 50 mg/dL [facility] TRIGLYCERIDES 362(H) <150 mg/dL [facility] Comment: If a non-fasting specimen was collected, consider repeat triglyceride testing on a fasting specimen if clinically indicated. Pat et al. J. of Clin. Lipidol. 2015;9:129-169. LDL-CHOLESTEROL 107(H) mg/dL (calc) [facility] Comment: Reference range: <100 Desirable range <100 mg/dL for primary prevention; <70 mg/dL for patients with CHD or diabetic patients with > or = 2 CHD risk factors. LDL-C is now calculated using the Satish-Morris calculation, which is a validated novel method providing better accuracy than the Friedewald equation in the estimation of LDL-C. Satish SS et al. ENRRIQUE. 2013;310(19): 2798-6085 (http://education.[employer]/faq/RHU404) CHOL/HDLC RATIO 4.8 <5.0 (calc) [facility] NON HDL CHOLESTEROL 155(H) <130 mg/dL (calc) [facility] Comment: For patients with diabetes plus 1 major ASCVD risk factor, treating to a non-HDL-C goal of <100 mg/dL (LDL-C of <70 mg/dL) is considered a therapeutic option. Blood BLOOD SPECIMEN / Unknown 03/26/2025 12:49 PM CDT 03/26/2025 12:53 PM CDT Annamaria Carrington NP CHEMISTRY Final [facility]u [facility] [address] [place] [address], [facility] [address] [place] [address] * COMP METABOLIC PANEL (03/26/2025 12:49 PM CDT) [facility] GLUCOSE 93 65 - 99 mg/dL [facility] Comment: Fasting reference interval UREA NITROGEN (BUN) 18 7 - 25 mg/dL [facility] CREATININE 0.81 0.60 - 1.00 mg/dL [facility] EGFR 74 > OR = 60 mL/min/1. 73m2 [facility] BUN/CREATININE RATIO SEE NOTE: [...] NP CHEMISTRY Final Resu lt [facility] [address] [place] [address], [facility] [address] [place] [address] * EKG 12 LEAD (03/26/2025 10:54 AM CDT) Interpretation Sinus rhythm with occasional Premature ventricular complexes Left axis deviation Abnormal ECG When compared with ECG of 12-Aug-2021 09:01, Premature ventricular complexes are now Present Ventricular Rate 78 BPM Atrial Rate 78 BPM P-R Interval 166 ms QRS Duration 102 ms QT 408 ms QTc 465 ms P [place] 67 degrees R [place] -56 degrees T [place] 61 degrees 03/26/2025 10:5 4 AM CDT 03/28/2025 10:50 AM CDT us Annamaria Carrington [employer]ANT [employer]HOST[employer] EKG ORD Final Resu lt * ANTI HCV [[id number]] (04/10/2024 12:15 PM CDT) HEPATITIS C ANTIBODY Non-Reacti ve Non-React alayna 04/11/2024 5:50 AM CDT [facility] Comment:Please note, per www .CDC.gov: [...] Gibson MD SEND OUTS Final Re sult [facility] [address] [place] [address], [place] * (ABNORMAL) XR DXA BONE DENSITY [...] HB ONLY MEDICARE PART A HB ONLY [facility] PB ONLY WORKERS COMP [facility] [employer] MEDICARE PART B HB ONLY Advance [...] 6:50 AM 04/26/2018 3:48 PM Care Teams Communications Electrician Supervisor Relationship Specialty Start Date End Date Votel, Justine Hernandez MD [address] [place] [address] PCP - General Family Practice 04/11/23 David Price MD Cardiology Cardiovascular Disease 12/13/12
[2025-04-06 09:54] LABS: Basophils Absolute Auto 0.04 K/uL (0.00-0.30); Basophils Percent Auto 0.6 % (0.0-3.0); Eosinophils Absolute Auto 0.07 K/uL (0.00-0.50); Hematocrit 43.4 % (33.0-51.0); Hemoglobin* 14.2 gm/dL (12.0-16.0); Immature Granulocytes Abs Auto 0.03 K/uL (0.00-0.30); Immature Granulocytes Pct Auto 0.4 %; Lymphocytes Absolute Auto 1.45 K/uL (0.90-2.90); Lymphocytes Percent Auto 21.7 % (20-44); Mean Corpuscular HGB Conc 33 gm/dL (32-36); Mean Corpuscular Hemoglobin 29 pg (26-34); Mean Corpuscular Volume 89 fL (80-100); Monocytes Percent Auto 10.2 % (0.0-11.0); Neutrophils Absolute Auto 4.41 K/uL (1.7-7.0); Neutrophils Percent Auto 66.1 % (42.0-72.0); Platelet Count* 162 K/uL (140-440); RDW Coefficient of Variation % 13.2 % (11.5-15.5); Red Blood Count 4.89 m/uL (4.00-5.20); White Blood Count* 6.68 K/uL (4.50-11.00)
[2025-04-06 09:58] LABS: Slide Review Reflex No
[2025-04-06] MEDS: diphenhydrAMINE 25 MG CAPSULE 50 MG PO (10:06)
[2025-04-06 10:08] LABS: Chloride* 101 mmol/L (96-114)
[2025-04-06 10:09] LABS: Albumin* 4.4 g/dL (3.3-5.0); Potassium* 3.5 mmol/L (3.6-5.1); Sodium* 140 mmol/L (135-149)
[2025-04-06 10:11] LABS: Blood Urea Nitrogen* 22 mg/dL (7-30); Creatinine* 0.8 mg/dL (0.5-1.5); Est. Creatinine Clearance* 36.67; Estimated Glomerular Filt Rate 75 ml/min
[2025-04-06 10:12] LABS: Alanine Aminotransferase* 24 U/L (4-35); Alkaline Phosphatase* 82 U/L (40-150); Anion Gap 10 mEq/L (7-15); Aspartate Amino Transferase* 30 U/L (12-35); Calcium* 9.7 mg/dL (8.4-10.6); Carbon Dioxide* 29 mmol/L (20-32); Glucose* 109 mg/dL (60-115); Total Protein* 7.5 g/dL (6.0-8.3)
[2025-04-06 10:23] LABS: PCR FLU A Negative PCR FLU A (Negative); PCR FLU B Negative PCR FLU B (Negative); PCR RSV Negative PCR RSV (Negative); SARS PCR* Negative SARS-CoV-2 (Negative)
[2025-04-06 11:02] LABS: Appearance Urine Clear (Clear); Bilirubin Urine Negative (Negative); Blood Urine Negative (Negative); Color Urine Yellow (Yellow); Glucose Urine Negative (Negative); Ketones Urine Negative (Negative); Leukocyte Esterase Urine Negative (Negative); Nitrite Urine Negative (Negative); Protein Urine Negative (Negative); Urobilinogen Urine 0.2 (0.2-1.0)
[2025-04-06 11:09] LABS: RBC Urine 0-2 (0-2); Squamous Epithelial Cell Urine Few (None-Few); WBC Urine 0-2 (0-5)
[2025-04-06 11:10] LABS: Bacteria Urine Few
[2025-04-06] MEDS: LORazepam 0.5 MG TABLET PO (12:39)
[2025-04-06] MEDS: ASPIRIN 81 MG TAB.CHEW PO (12:40)
[2025-04-06 14:56] LABS: Magnesium* 1.8 mg/dL (1.5-2.6)
--- NOTE | 2025-04-06 15:51 | P.IMHP_ITS ---
Assessment and Plan Assessment and plan (1) Dizziness: Problem comment: - patient indicates this is new since the morning of 04/05/2025. Unclear if there was a baseline level of dizziness as well. Acknowledges progressive sense of exhaustion and generalize weakness which in part prompted her seeing her pastry assistant and ultimately resulted in her obtaining the angiogram on 04/02/2025. 1 question is whether not she may have had a small embolic stroke in association with the angiogram procedure. Additional differential diagnosis includes: Benign paroxysmal positional vertigo, orthostatic hypotension, medication side effect, electrolyte imbalance, stroke, arrhythmia, heart failure, hypoglycemia, other endocrine. - for now will monitor overnight with telemetry. Replenish potassium and magnesium. Reassess in the morning. - MRI of the brain without contrast to assess for possible recent stroke. - will have Physical therapy and Occupational therapy assess and assist. Status: Acute Plan 1. Reviewed impression, plans, recommendations with patient 2. Patient agreeable 3. Answered her questions are satisfaction Total Time Spent Total Time Spent: 65 minutes Hospitalist- H&P: HPI History of Present Illness Date Seen: 04/06/25 Chief complaint: dizziness Narrative: Cynthia Medina is a 79 year old woman with known coronary artery disease status post coronary angiogram 04/02/2025 to assess for exertional chest pressure and dyspnea, demonstrating nonobstructive coronary artery disease. Yesterday morning she had the abrupt onset of ?dizziness.? Denies vertigo or orthostasis. Denies diplopia or change in vision. Has had significant decrease in appetite but denies nausea or vomiting. Acknowledges increased sense of exhaustion and sleepiness as well. A sense of generalized weakness without focal weakness. Denies focal motor neurologic deficits. No recent trauma or blood loss. No recent change in medications. Acknowledges long-standing emotional and psychological challenges, most recently in association with the health of her . Assessment in the emergency department today demonstrated no apparent etiology for her symptoms. After discussion with neurologist from [facility], recommendation was made to obtain MR scan of the brain tomorrow to assess for possible stroke given recent coronary angiogram and chronology of her symptom onset. Review of Systems Status of ROS: Reports: 6 or more systems reviewed and unremarkable except as noted in History and below [facility] Medical History (Updated 04/06/25 @ 16:08 by Sd Booker MD) Peripheral artery disease ?I73.9 - Peripheral vascular disease, unspecified (ICD-10) Dyspnea ?R06.00 - Dyspnea, unspecified (ICD-10) History of tobacco use disorder ?Z87.891 - Personal history of nicotine dependence (ICD-10) Vitamin D deficiency ?E55.9 - Vitamin D deficiency, unspecified (ICD-10) Gastroesophageal reflux disease ?K21.9 - Gastro-esophageal reflux disease without esophagitis (ICD-10) Statin intolerance ?Z78.9 - Other specified health status (ICD-10) Elevated blood sugar ?R73.9 - Hyperglycemia, unspecified (ICD-10) Family history of ischemic heart disease (IHD) ?Z82.49 - Family history of ischemic heart disease and other diseases of the circulatory system (ICD-10) Hyperlipidemia ?E78.5 - Hyperlipidemia, unspecified (ICD-10) Essential hypertension ?I10 - Essential (primary) hypertension (ICD-10) Coronary artery disease ?I25.10 - Atherosclerotic heart disease of [place] coronary artery without angina pectoris (ICD-10) H. 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) Surgical History History of cholecystectomy (~08/2021) ?Z90.49 - Acquired absence of other specified parts of digestive tract (ICD- 10) History of tonsillectomy ?Z90.89 - Acquired absence of other organs (ICD-10) History of hysterectomy ?Z90.710 - Acquired absence of both cervix and uterus (ICD-10) Family History (Updated 04/06/25 @ 15:50 by Sd Booker MD) Father Heart disease Mother Heart disease Sister Heart disease Social History Narrative: -Anson What is your current living situation?: I presently have a place to live Problems where you live: no known problems Problems where you live details: N/A In the past 12 months, utilities in danger of being shut off: no In past 12 months, lack of transportation kept you from medical appts, meetings, work, or getting things needed for daily living: no In the past 12 mos, have been you worried that your food would run out before you had money to buy more?: never true In the past 12 mos, the food you bought just didn't last and you didn't have money to buy more?: never true Smoking Status: Never smoker Do you use any of these nicotine containing products: None Second hand tobacco smoke exposure: No How often do you have a drink containing alcohol: never How many standard drinks containing alcohol do you have on a typical day: 1 or 2 How often do you have six or more drinks on one occasion: Never AUDIT-C Alcohol total score: 0 Non-prescribed substance use: denies use Caffeine: Yes How often does anyone, including family, friends and others, physically hurt you : never How often does anyone, including family, friends and others, insult or talk down to you: never How often does anyone, including family, friends and others, threaten you with harm: never How often does anyone, including family, friends and others, scream or curse at you: never service: No Meds Home Medications and Allergies Home Medications ?Medication ?Instructions ?Recorded ?Confirmed ?Type chlorthalidone 25 mg tablet 25 mg PO DAILY 10/07/22 04/06/25 History cholecalciferol (vitamin D3) 125 125 mcg PO QDAY 10/07/22 04/06/25 History mcg (5,000 unit) capsule losartan 50 mg tablet 50 mg PO DAILY 10/07/22 04/06/25 History nitroglycerin 0.4 mg sublingual 0.4 mg sublingual .prn 10/07/22 04/06/25 History tablet psyllium husk 0.4 gram capsule 0.4 g PO QDAY 04/25/23 04/06/25 History (Metamucil) aspirin 81 mg tablet,delayed 81 mg PO DAILY 04/06/25 04/06/25 History release (Adult Aspirin Regimen) ciclopirox 8 % topical solution 1 applic topical HS 04/06/25 04/06/25 History isosorbide mononitrate 30 mg 15 mg PO DAILY 04/06/25 04/06/25 History tablet,extended release 24 hr Allergies Allergy/AdvReac Type Severity Reaction Status Date / Time codeine Allergy Verified 04/06/25 09:09 hydrocodone Allergy Verified 04/06/25 09:09 iodine Allergy Verified 04/06/25 09:09 lisinopril Allergy Verified 04/06/25 09:09 meperidine (From Demerol) Allergy Verified 04/06/25 09:09 nitrofurantoin (From Allergy Verified 04/06/25 09:09 Macrodantin) oxycodone Allergy Verified 04/06/25 09:09 Penicillins Allergy Verified 04/06/25 09:09 Xfiltdu-TEI-ZcO Reductase Allergy Verified 04/23/24 21:22 Inhibitor Sulfa (Sulfonamide Allergy Verified 04/06/25 09:09 Antibiotics) tetracycline Allergy Verified 04/06/25 09:09 hydromorphone (From Dilaudid) AdvReac Verified 04/06/25 09:09 Exam Narrative: Exam Narrative: Examined patient in her hospital room. Appears comfortable and in no acute distress. Alert and oriented x4. Friendly, articulate, cooperative. Vision and hearing are adequate. No spontaneous or inducible nystagmus. Pupils equally round and reactive to light and accommodation. Extraocular muscles are intact. Conjugate gaze. Cranial nerves 3-12 grossly normal. Facial symmetry. No JVD or hepatojugular reflux. No head neck lymphadenopathy. No peripheral of focal motor neurologic deficits. Independent with transfer, station, gait. Lungs clear to auscultation. Heart tones with regular rhythm, normal S1-S2. PMI not laterally displaced. Abdomen with active bowel sounds, soft, nontender. Extremities without edema. Skin is intact. Const: Vital Signs, click to edit/add: Vital Signs - 24 hr 04/06/25 08:51 04/06/25 11:01 04/06/25 11:30 Temperature 97.1 F L Pulse Rate 83 81 Pulse Rate [Pulse Oximeter] 81 Respiratory Rate 18 13 14 Blood Pressure Blood Pressure [Le ft Arm] Blood Pressure [Ri ght Upper Arm] 153/74 H Pulse Oximetry 95 97 92 Oxygen Delivery Me thod Room Air 04/06/25 12:00 04/06/25 12:15 04/06/25 12:21 Temperature Pulse Rate 76 82 83 Pulse Rate [Pulse Oximeter] Respiratory Rate 14 16 23 Blood Pressure 145/83 H Blood Pressure [Le ft Arm] Blood Pressure [Ri ght Upper Arm] Pulse Oximetry 89 92 96 Oxygen Delivery Me thod 04/06/25 13:43 Temperature 97.6 F Pulse Rate Pulse Rate [Pulse Oximeter] 86 Respiratory Rate 20 Blood Pressure Blood Pressure [Le ft Arm] 133/82 Blood Pressure [Ri ght Upper Arm] Pulse Oximetry 95 Oxygen Delivery Me thod Room Air Hospitalist - H&P: Result Labs Labs: Short CBC 04/06/25 Range/Units 09:46 WBC 6.68 (4.50-11.00) K/uL Hgb 14.2 (12.0-16.0) gm/dL Hct 43.4 (33.0-51.0) % Plt Count 162 (140-440) K/uL BMP 04/06/25 09:46 Sodium 140 Potassium 3.5 L Chloride 101 Carbon Dioxide 29 BUN 22 Creatinine 0.8 Glucose 109 Calcium 9.7 Liver Function 04/06/25 Range/Units 09:46 Total Bilirubin 1.0 (0.1-1.5) mg/dL AST 30 (12-35) U/L ALT 24 (4-35) U/L Alkaline Phosphatase 82 (40-150) U/L Albumin 4.4 (3.3-5.0) g/dL Urine 04/06/25 Range/Units 10:55 Urine Color Yellow (Yellow) Urine Appearance Clear (Clear) Urine pH 7.0 (5.0-8.5) Ur Specific [place] 1.010 (1.000-1.030) Urine Protein Negative (Negative) Urine Glucose (UA) Negative (Negative) ECG ECG interpretation date: 04/06/25 Prior ECG tracings: not available for review Interpretation: Normal sinus rhythm. Imaging Chest x-ray: Attestation: I have reviewed the pertinent imaging results. Radiologist's impression: No acute cardiopulmonary changes. CT scan - head: Attestation: I have reviewed the pertinent imaging results. Radiologist's impression: No acute findings.
[2025-04-06] MEDS: POTASSIUM CHLORIDE 10 MEQ CAPSULE ER 40 MEQ PO (18:05)
[2025-04-06] MEDS: SODIUM CHLORIDE 0.9 % (FLUSH) 10 ML SYRINGE 5 ML IVF (19:27)
[2025-04-06] MEDS: ACETAMINOPHEN 325 MG TABLET 650 MG PO (22:23)
--- NOTE | 2025-04-07 | CRLHL7_ITS ---
For Patients: As a result of the Century Cures Act, medical imaging exams and procedure reports are released immediately into your electronic medical record. You may view this report before your referring provider. If you have questions, please contact your health care provider. Indication: Dizziness. Technique: Multiplanar multisequence noncontrast MR images of the brain. Comparison: CT brain 04/06/2025. Findings: Minimal diffuse cerebral volume loss. No mass effect or midline shift. Scattered FLAIR hyperintensities in the supratentorial white matter, typical for mild chronic microvascular ischemic changes. Chronic lacunar infarction left centrum semiovale. No diffusion restriction to suggest acute infarction. Punctate susceptibility high posterior right frontal lobe, compatible with a chronic microhemorrhage or mineralization. No recent intracranial hemorrhage or pathologic extra-axial fluid collection. The major arterial flow voids of the skull base are preserved. Thinning of the ocular lenses. Mild paranasal sinus mucosal thickening. Small bilateral mastoid effusions. Impression: 1. No acute intracranial abnormality. 2. Mild chronic microvascular ischemic changes and diffuse cerebral volume loss. Dictated by Kishor Aguila MD @ 04/07/2025 9:10:47 AM (Electronically Signed)
[2025-04-07 00:57] VITALS: PULSE 77
[2025-04-07 03:00] VITALS: BP 134/80; PULSE 83; RESP 16; TEMP 36.9; O2SAT 93
[2025-04-07] MEDS: ACETAMINOPHEN 325 MG TABLET 650 MG PO (04:37)
[2025-04-07 05:07] VITALS: BP 126/66; BP 130/75; BP 147/86; PULSE 73; PULSE 77; PULSE 82
[2025-04-07 06:49] LABS: Potassium* 3.4 mmol/L (3.6-5.1)
--- NOTE | 2025-04-07 06:50 | PC.NURSE ---
End of shift report : VSS. Afebrile. Rates pain from a 3-4, prn pain meds offered and given with relief. ?Pt ambulates SBA in room. Pt reported dizziness when standing when completing orthostatic blood pressures. Pt remains resting in bed, call light within reach.?
[2025-04-07 06:52] LABS: Magnesium* 1.9 mg/dL (1.5-2.6)
[2025-04-07 08:01] VITALS: PULSE 77
[2025-04-07 08:04] VITALS: BP 130/72; PULSE 77; RESP 18; TEMP 36.6; O2SAT 95
[2025-04-07] MEDS: ASPIRIN 81 MG TABLET EC PO (09:44)
[2025-04-07] MEDS: CHLORTHALIDONE 25 MG TABLET PO (09:44)
[2025-04-07] MEDS: LOSARTAN POTASSIUM 50 MG TABLET PO (09:44)
[2025-04-07] MEDS: POTASSIUM BICARB 25 MEQ EFFERVESCENT TAB PO ×2 (09:45→11:25)
[2025-04-07] MEDS: SODIUM CHLORIDE 0.9 % (FLUSH) 10 ML SYRINGE 5 ML IVF (09:45)
--- NOTE | 2025-04-07 10:08 | PC.SOCIAL ---
Plastic Surgeon Initial Check-In: SW met with patient and patient's to introduce SW and see if they have any needs or concerns. Patient and state no concerns, would just have liked for this not to happen as their oldest great grandchild is graduating from high school on Monday. SW provided validation. SW to assist if needs arise.
--- NOTE | 2025-04-07 10:59 | P.DS_ITS ---
DS: Providers Provider Time Seen by Provider: 10:57 Date Seen: 04/07/25 Date of admission: 04/06/25 13:41 Primary care physician: John Johns MD Admitting Clinician: Maribel De Jesus MD Consults: 04/06/25 16:21 Consult to Occupational Therapy [CONS] Routine Comment: Reason(s) for OT Consult:: Evaluate and Treat Any Restrictions?:: No Restrictions Consult to Physical Therapy [CONS] Routine Comment: Reason(s) for PT Consult:: Evaluate and Treat Any Restrictions?:: No Restrictions Attending Physician on discharge: Maribel De Jesus MD DS: Diagnosis Discharge Diagnosis (1) Dizziness: Status: Acute Problem details: - patient indicates this is new since the morning of 04/05/2025. Unclear if there was a baseline level of dizziness as well. Acknowledges progressive sense of exhaustion and generalize weakness which in part prompted her seeing her rubber tubing splicer and ultimately resulted in her obtaining the angiogram on 04/02/2025. 1 question is whether not she may have had a small embolic stroke in association with the angiogram procedure. Additional differential diagnosis i ncludes: Benign paroxysmal positional vertigo, orthostatic hypotension, medication side effect, electrolyte imbalance, stroke, arrhythmia, heart failure, hypoglycemia, other endocrine. - for now will monitor overnight with telemetry. Replenish potassium and magnesium. Reassess in the morning. - MRI of the brain without contrast to assess for possible recent stroke. - will have Physical therapy and Occupational therapy assess and assist. - 04/07 dizziness has resolved. MRI reassuring, no evidence of stroke. PT and OT have evaluated and recommend adding high level balance to her outpatient PT regimen. (2) Hypokalemia: Status: Acute DS: Summary Hospital Course Hospital Course: Per H&P: Cynthia Medina is a 79 year old woman with known coronary artery disease status post coronary angiogram 04/02/2025 to assess for exertional chest pressure and dyspnea, demonstrating nonobstructive coronary artery disease. Yesterday morning she had the abrupt onset of ?dizziness.? Denies vertigo or orthostasis. Denies diplopia or change in vision. Has had significant decrease in appetite but denies nausea or vomiting. Acknowledges increased sense of exhaustion and sleepiness as well. A sense of generalized weakness without focal weakness. Denies focal motor neurologic deficits. No recent trauma or blood loss. No recent change in medications. Acknowledges long-standing emotional and psychological challenges, most recently in association with the health of her . Assessment in the emergency department today demonstrated no apparent etiology for her symptoms. After discussion with neurologist from [facility], recommendation was made to obtain MR scan of the brain tomorrow to assess for possible stroke given recent coronary angiogram and chronology of her symptom onset. Today Chetna feels much better. Tells me that she now thinks it was something to do with potassium and magnesium, although I reassured her that at her current levels of potassium and magnesium that was unlikely to be symptomatic. She is no longer dizzy and is hoping to go home and get ready for a trip to [place] that was supposed this happen yesterday. Her was also in the room and we discussed the MRI results. She is discharged home today in improved and stable condition. Due to mildly low potassium yesterday and today, I am starting her on daily potassium and will have her follow-up with her primary care provider to recheck that. Time Spent with Patient Time attestation: Total time spent providing and/or coordinating discharge services: Today I spent 40 minutes seeing the patient, completing the discharge, reviewing [facility] and [facility] notes/diagnostics/labs, discussing the care plan with our care team that includes social work, PT/OT, pharmacy, RT, long-term and documenting my impressions and plan in the medical record. Exam Narrative: Exam Narrative: General: No acute distress. Awake, alert, oriented x3. No pallor. No jaundice. Oropharynx: Clear. Mucous membranes moist. Cardiovascular: Regular rate and rhythm. No murmurs, gallops, or rubs. Respiratory: Clear to auscultation bilaterally. No wheezes or crackles. Neuro: There are no focal deficits. Cranial nerves 2-12 are intact. Extraocular movements are full. No nystagmus. No facial asymmetry. Tongue is midline. Strength is 5/5 in all 4 extremities. Light touch sensation is intact in face body and extremities. Const: Vital Signs, click to edit/add: Vital Signs - 24 hr 04/06/25 11:01 04/06/25 11:30 04/06/25 12:00 Temperature Pulse Rate 83 81 76 Pulse Rate [Pulse Oximeter] Pulse Rate [orthos tatic lying] Pulse Rate [orthos tatic sitting] Pulse Rate [orthos tatic standing] Respiratory Rate 13 14 14 Blood Pressure Blood Pressure [Le ft Arm] Blood Pressure [or thostatic lying Le ft Arm] Blood Pressure [or thostatic sitting] Blood Pressure [or thostatic standing ] Pulse Oximetry 97 92 89 Oxygen Delivery Me thod 04/06/25 12:15 04/06/25 12:21 04/06/25 13:42 Temperature Pulse Rate 82 83 Pulse Rate [Pulse Oximeter] Pulse Rate [orthos tatic lying] Pulse Rate [orthos tatic sitting] Pulse Rate [orthos tatic standing] Respiratory Rate 16 23 Blood Pressure 145/83 H Blood Pressure [Le ft Arm] Blood Pressure [or thostatic lying Le ft Arm] Blood Pressure [or thostatic sitting] Blood Pressure [or thostatic standing ] Pulse Oximetry 92 96 94 Oxygen Delivery Pa thod Room Air 04/06/25 13:43 04/06/25 15:00 04/06/25 15:55 Temperature 97.6 F Pulse Rate Pulse Rate [Pulse Oximeter] 86 86 Pulse Rate [orthos tatic lying] 95 Pulse Rate [orthos tatic sitting] 93 Pulse Rate [orthos tatic standing] 98 Respiratory Rate 20 20 Blood Pressure Blood Pressure [Le ft Arm] 133/82 Blood Pressure [or thostatic lying Le ft Arm] 128/62 Blood Pressure [or thostatic sitting] 138/74 Blood Pressure [or thostatic standing ] 144/82 H Pulse Oximetry 95 [facility] 04/06/25 19:00 04/06/25 22:58 04/06/25 23:00 Temperature 98.6 F 97.8 F Pulse Rate Pulse Rate [Pulse Oximeter] 80 80 80 Pulse Rate [orthos tatic lying] Pulse Rate [orthos tatic sitting] Pulse Rate [orthos tatic standing] Respiratory Rate 18 18 18 Blood Pressure Blood Pressure [Le ft Arm] 123/82 125/63 Blood Pressure [or thostatic lying Le ft Arm] Blood Pressure [or thostatic sitting] Blood Pressure [or thostatic standing ] Pulse Oximetry 91 92 Oxygen Delivery Pa thod Room Air Room Air 04/06/25 23:00 04/07/25 00:57 04/07/25 03:00 Temperature 98.4 F Pulse Rate 77 Pulse Rate [Pulse Oximeter] 83 Pulse Rate [orthos tatic lying] Pulse Rate [orthos tatic sitting] Pulse Rate [orthos tatic standing] Respiratory Rate 18 16 Blood Pressure Blood Pressure [Le ft Arm] 134/80 Blood Pressure [or thostatic lying Le ft Arm] Blood Pressure [or thostatic sitting] Blood Pressure [or thostatic standing ] Pulse Oximetry 92 93 Oxygen Delivery Me thod Room Air Room Air 04/07/25 05:07 04/07/25 08:01 04/07/25 08:04 Temperature Pulse Rate 77 Pulse Rate [Pulse Oximeter] Pulse Rate [orthos tatic lying] 73 Pulse Rate [orthos tatic sitting] 77 Pulse Rate [orthos tatic standing] 82 Respiratory Rate 18 Blood Pressure Blood Pressure [Le ft Arm] Blood Pressure [or thostatic lying Le ft Arm] 126/66 Blood Pressure [or thostatic sitting] 130/75 Blood Pressure [or thostatic standing ] 147/86 H Pulse Oximetry 95 Oxygen Delivery Me thod Room Air 04/07/25 08:04 Temperature 97.9 F Pulse Rate Pulse Rate [Pulse Oximeter] 77 Pulse Rate [orthos tatic lying] Pulse Rate [orthos tatic sitting] Pulse Rate [orthos tatic standing] Respiratory Rate 18 Blood Pressure Blood Pressure [Le ft Arm] 130/72 Blood Pressure [or thostatic lying Le ft Arm] Blood Pressure [or thostatic sitting] Blood Pressure [or thostatic standing ] Pulse Oximetry 95 Oxygen Delivery Me thod Room Air DS: Data Data Completed and Pending Completed studies during hospitalization: 04/06/2025 EKG: Normal sinus rhythm, 70 beats per minute, left axis deviation. Ordering Physician: Maura Blanco M.D. Date of Service: 04/06/25 Procedure(s): CT head/brain wo [facility] Accession Number(s): [id number] cc: Maura Blanco M.D.; John Johns M.D.~ For Patients: As a result of the Century Cures Act, medical imaging exams and procedure reports are released immediately into your electronic medical record. You may view this report before your referring provider. If you have questions, please contact your health care provider. INDICATION: PT HAS BEEN FEELING DIZZY, OFF BALANCE EXHAUSTED AND TIRED FOR A FEW DAYS- UNABLE TO GET IV ACCESS NO ANGIO WAS PERFORMED TECHNIQUE: CT of the head without contrast. Coronal and sagittal reformats. Bone and soft tissue algorithms. COMPARISON: No prior studies available for comparison at this institution. FINDINGS: No acute intracranial hemorrhage or extra-axial collection. No evidence of acute cortical infarction. No mass effect or midline shift. Normal parenchymal volume. No hydrocephalus. Mild regions of decreased attenuation within the periventricular and subcortical white matter of both cerebral hemispheres most likely reflect chronic microvascular ischemic disease and age related change in this patient. Vascular calcifications within the carotid siphons. Orbital contents are normal. No calvarial fractures. No lytic or sclerotic osseous lesions within the calvarium or skull base. Scalp and other imaged soft tissue structures are normal. Mastoid air cells are clear. Rightward deviation of the nasal septum. IMPRESSION: No acute intracranial abnormality. Please note that all CT scans at this facility use dose modulation, iterative reconstruction, and/or weight-based dosing when appropriate to reduce radiation dose to as low as reasonably achievable. Dictated by Torres Arcos MD @ 04/06/2025 11:24:31 AM (Electronically Signed) Ordering Physician: Maura Blanco M.D. Date of Service: 04/06/25 Procedure(s): XR chest 1V portable Accession Number(s): [id number] cc: Maura Blanco M.D.; John Johns M.D.~ For Patients: As a result of the Cures Act, medical imaging exams and procedure reports are released immediately into your electronic medical record. You may view this report before your referring provider. If you have questions, please contact your health care provider. INDICATION: Dizziness and lethargy. TECHNIQUE: Chest 1 views. COMPARISON: None. FINDINGS: Cardiovasculature and mediastinum: Heart size is normal. Unremarkable mediastinum. Lungs and pleural spaces: Lungs are clear. No sign of infiltrate or mass. No sign of pleural effusion. No pneumothorax. Bones and soft tissues: No significant findings. IMPRESSION: Negative chest. Dictated by Michael Cartwright MD @ 04/06/2025 11:40:22 AM (Electronically Signed) Ordering Physician: Sd Booker M.D. Date of Service: 04/07/25 Procedure(s): MR head/brain wo con Accession Number(s): [id number] cc: Sd Booker M.D.; John Johns M.D.~ For Patients: As a result of the 21st Century Cures Act, medical imaging exams and procedure reports are released immediately into your electronic medical record. You may view this report before your referring provider. If you have questions, please contact your health care provider. Indication: Dizziness. Technique: Multiplanar multisequence noncontrast MR images of the brain. Comparison: CT brain 04/06/2025. Findings: Minimal diffuse cerebral volume loss. No mass effect or midline shift. Scattered FLAIR hyperintensities in the supratentorial white matter, typical for mild chronic microvascular ischemic changes. Chronic lacunar infarction left centrum semiovale. No diffusion restriction to suggest acute infarction. Punctate susceptibility high posterior right frontal lobe, compatible with a chronic microhemorrhage or mineralization. No recent intracranial hemorrhage or pathologic extra-axial fluid collection. The major arterial flow voids of the skull base are preserved. Thinning of the ocular lenses. Mild paranasal sinus mucosal thickening. Small bilateral mastoid effusions. Impression: 1. No acute intracranial abnormality. 2. Mild chronic microvascular ischemic changes and diffuse cerebral volume loss. Dictated by Kishor Aguila MD @ 04/07/2025 9:10:47 AM (Electronically Signed) Labs on day of discharge: Labs from last 24 hours 04/07/25 04/06/25 04/06/25 06:05 15:50 14:22 Potassium 3.4 L Hemoglobin A1c Magnesium 1.9 TSH Urine Color Urine Appearance Urine pH Ur Specific [place] Urine Protein Urine Glucose (UA) Urine Ketones Urine Blood Urine Nitrite Urine Bilirubin Urine Urobilinogen Ur Leukocyte Esterase Urine RBC Urine WBC Ur Squamous Epith Cells Urine Bacteria Lab Acknowledgement Test Added Test Added 04/06/25 04/06/25 04/06/25 10:55 09:50 09:46 Potassium Hemoglobin A1c 6.0 H Magnesium 1.8 TSH 1.690 Urine Color Yellow Urine Appearance Clear Urine pH 7.0 Ur Specific [place] 1.010 Urine Protein Negative Urine Glucose (UA) Negative Urine Ketones Negative Urine Blood Negative Urine Nitrite Negative Urine Bilirubin Negative Urine Urobilinogen 0.2 Ur Leukocyte Esterase Negative Urine RBC 0-2 Urine WBC 0-2 Ur Squamous Epith Cells Few Urine Bacteria Few A Lab Acknowledgement Preliminary micro results at discharge 04/06/25 10:55 Urine Culture - Preliminary Urine,Clean Catch < 10,000 COL/ML GRAM NEGATIVE RODS ISOLATED NO FURTHER WORKUP Discharge Plan Discharge Disposition: Home, Self-Care Date of Admission: 04/06/25 13:41 Attending Provider on Discharge: Maribel De Jesus Primary Care Provider: John Johns Condition: Improved Anticipated Discharge Date/Time: 04/07/25 11:31 Discharge Medications: New potassium chloride 10 mEq capsule, extended release 10 meq PO DAILY Qty: 30 0RF Continued losartan 50 mg tablet 50 mg PO DAILY chlorthalidone 25 mg tablet 25 mg PO DAILY nitroglycerin 0.4 mg tablet, sublingual 0.4 mg sublingual .prn cholecalciferol (vitamin D3) 125 mcg (5,000 unit) capsule 125 mcg PO QDAY psyllium husk [Metamucil] 0.4 gram capsule 0.4 g PO QDAY isosorbide mononitrate 30 mg tablet extended release 24 hr 15 mg PO DAILY Patient Comments: [NO ORIGINAL SIG] ciclopirox 8 % solution 1 applic topical HS aspirin [Adult Aspirin Regimen] 81 mg tablet,delayed release (DR/EC) 81 mg PO DAILY Discharge Orders: Discharge Order (Routine); Ordered 04/07/25 Ordered By: Maribel De Jesus Additional Instructions: Continue outpatient PT - add high level balance Activity Level: Other Activity Detail: Consider using Four wheeled walker for balance Discharge Diet: Regular Follow Up Appointments: John Johns MD [Primary Care Provider] - (1 week, potassium) Forms: [employer] Info Instructions
== END 2025-04-07 12:47 | disposition home or self-care (01) ==
LOC: ED 13:40 → MEDSURG 13:41
PROVIDERS: Internal Medicine; Admitting Provider Family Medicine; Emergency Provider Family Medicine; PCP Family Medicine; Visit Provider Family Medicine
DX: R42 Dizziness and giddiness (principal); E87.6 Hypokalemia; R53.83 Other fatigue; R40.0 Somnolence; M62.81 Muscle weakness (generalized); I25.10 Atherosclerotic heart disease of native coronary artery without angina pectoris; K21.9 Gastro-esophageal reflux disease without esophagitis; K57.90 Diverticulosis of intestine, part unspecified, without perforation or abscess without bleeding; I10 Essential (primary) hypertension; E78.5 Hyperlipidemia, unspecified; Z79.82 Long term (current) use of aspirin; Z86.19 Personal history of other infectious and parasitic diseases; Z87.891 Personal history of nicotine dependence; Z82.49 Family history of ischemic heart disease and other diseases of the circulatory system; R73.09 Other abnormal glucose
CPT/HCPCS: 36415; 70450; 70551; 71045; 80053; 81001; 83036; 83735; 84132; 84443; 84484; 85025; 86140; 87086; 87631; 93005; 96365; 96366; 97116; 97161; 97165; 99284; 99285; A9270; G0378; J3475

== ENCOUNTER 2025-06-10 09:15 | Outpatient (RCR) | payer MEDICARE, BC, SELFPAY | END 2025-06-10 14:27 | disposition home or self-care (01) | PROVIDERS: PCP Family Medicine; Visit Provider Family Medicine | DX: M75.32 Calcific tendinitis of left shoulder (principal); M75.52 Bursitis of left shoulder; M79.12 Myalgia of auxiliary muscles, head and neck; M25.511 Pain in right shoulder; Z51.89 Encounter for other specified aftercare | CPT/HCPCS: 97110; 97140; 97161; 97530 ==

== ENCOUNTER 2025-08-07 11:52 | Outpatient (CLI) | payer MEDICARE, BC, SELFPAY ==
--- NOTE | 2025-08-07 12:15 | CRLHL7_ITS ---
For Patients: As a result of the Century Cures Act, medical imaging exams and procedure reports are released immediately into your electronic medical record. You may view this report before your referring provider. If you have questions, please contact your health care provider. Indication: Stroke. Technique: MRI brain: Multiplanar multisequence noncontrast MR images. MRA head: [id number] images. MRA neck: Cqjq-wz-svquoe and postcontrast images following intravenous administration of 15 mL Dotarem. Comparison: MRI brain 04/07/2025. Findings: MRI brain: Minimal diffuse cerebral volume loss. No mass effect or midline shift. Stable scattered FLAIR hyperintensities in the supratentorial white matter, typical for mild chronic microvascular ischemic changes. No intracranial hemorrhage or pathologic extra-axial fluid collection. No diffusion restriction to suggest acute infarction. The major arterial flow voids of the skull base are preserved. Thinning of the ocular lenses. Minimal paranasal sinus mucosal thickening. Trace bilateral mastoid effusions. MRA head: The internal carotid, middle cerebral, and anterior cerebral arteries are widely patent. The vertebral, basilar, and posterior cerebral arteries are widely patent. 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 MRA neck: The innominate and subclavian arteries are widely patent. The common carotid arteries are widely patent. The internal carotid arteries are widely patent. The right vertebral artery is dominant. The right vertebral artery origin is suboptimally evaluated, though potentially stenotic. The vertebral arteries are otherwise widely patent. Impression: MRI brain: 1. No acute intracranial abnormality. 2. Stable mild chronic microvascular ischemic changes. MRA head/neck: 1. Widely patent intracranial vasculature. 2. 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 Recommend consultation with the neurointerventional radiology service at [facility] for further management. This can be arranged by calling [phone]. 3. The right vertebral artery origin is suboptimally evaluated, though potentially stenotic. The cervical arteries are otherwise widely patent. Dictated by Kishor Aguila MD @ 08/07/2025 3:13:46 PM (Electronically Signed)
--- NOTE | 2025-08-07 13:00 | CRLHL7_ITS ---
For Patients: As a result of the Century Cures Act, medical imaging exams and procedure reports are released immediately into your electronic medical record. You may view this report before your referring provider. If you have questions, please contact your health care provider. Indication: Stroke. Technique: MRI brain: Multiplanar multisequence noncontrast MR images. MRA head: Jqdj-[id number]-hnylep images. MRA neck: Zmgg-gr-uujovn and postcontrast images following intravenous administration of 15 mL Dotarem. Comparison: MRI brain 04/07/2025. Findings: MRI brain: Minimal diffuse cerebral volume loss. No mass effect or midline shift. Stable scattered FLAIR hyperintensities in the supratentorial white matter, typical for mild chronic microvascular ischemic changes. No intracranial hemorrhage or pathologic extra-axial fluid collection. No diffusion restriction to suggest acute infarction. The major arterial flow voids of the skull base are preserved. Thinning of the ocular lenses. Minimal paranasal sinus mucosal thickening. Trace bilateral mastoid effusions. MRA head: The internal carotid, middle cerebral, and anterior cerebral arteries are widely patent. The vertebral, basilar, and posterior cerebral arteries are widely patent. 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 MRA neck: The innominate and subclavian arteries are widely patent. The common carotid arteries are widely patent. The internal carotid arteries are widely patent. The right vertebral artery is dominant. The right vertebral artery origin is suboptimally evaluated, though potentially stenotic. The vertebral arteries are otherwise widely patent. Impression: MRI brain: 1. No acute intracranial abnormality. 2. Stable mild chronic microvascular ischemic changes. MRA head/neck: 1. Widely patent intracranial vasculature. 2. 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 Recommend consultation with the neurointerventional radiology service at [facility] for further management. This can be arranged by calling [phone]. 3. The right vertebral artery origin is suboptimally evaluated, though potentially stenotic. The cervical arteries are otherwise widely patent. Dictated by Kishor Aguila MD @ 08/07/2025 3:14:37 PM (Electronically Signed)
== END 2025-08-07 11:53 | disposition home or self-care (01) ==
LOC: MRI 11:53
PROVIDERS: PCP Family Medicine; Visit Provider Psychiatry & Neurology Neurology
DX: I67.82 Cerebral ischemia (principal); I72.0 Aneurysm of carotid artery; I67.89 Other cerebrovascular disease
CPT/HCPCS: 70544; 70549; 70551; A9575

== ENCOUNTER 2025-08-19 15:47 | Outpatient (CLI) | payer MEDICARE, BC, SELFPAY ==
--- NOTE | 2025-08-19 16:00 | CRLHL7_ITS ---
For Patients: As a result of the Century Cures Act, medical imaging exams and procedure reports are released immediately into your electronic medical record. You may view this report before your referring provider. If you have questions, please contact your health care provider. INDICATION: Brain aneurysm. TECHNIQUE: CTA head using intravenous contrast with bolus tracking, 3D angiographic rendering using maximum intensity projection (MIP) and images permanently archived. CTA neck using intravenous contrast with bolus tracking, 3D angiographic rendering using maximum intensity projection (MIP) and images permanently archived. FINDINGS: CTA head: There is scattered intracranial atherosclerotic disease. A 2 millimeter superior hypophyseal right ICA aneurysm is noted. There is no large vessel occlusion or significant intracranial stenosis. CTA neck: There is carotid atherosclerosis bilaterally. There is no significant carotid artery stenosis or dissection. There is no significant vertebral artery stenosis or dissection. Degenerative changes are noted in the cervical spine. Emphysema is present in the visualized lungs. IMPRESSION: 1. Small superior hypophyseal right ICA aneurysm. 2. No significant carotid or vertebral artery stenosis or dissection. Please note that all CT scans at this facility use dose modulation, iterative reconstruction, and/or weight-based dosing when appropriate to reduce radiation dose to as low as reasonably achievable. Dictated by Ion Moss MD @ 08/20/2025 8:05:31 AM (Electronically Signed)
[2025-08-19 16:21] LABS: Creatinine* 0.8 mg/dL (0.5-1.5); Estimated Glomerular Filt Rate 75 ml/min
== END 2025-08-19 15:48 | disposition home or self-care (01) ==
LOC: CT 15:48
PROVIDERS: PCP Family Medicine; Visit Provider Neurological Surgery
DX: I67.1 Cerebral aneurysm, nonruptured (principal)
CPT/HCPCS: 36415; 70496; 70498; 82565; Q9967

== ENCOUNTER 2025-10-17 10:15 | Outpatient (CLI) | payer MEDICARE, BC, SELFPAY ==
--- NOTE | 2025-10-17 11:30 | P.ANES_ITS ---
Anesthesia Charges Start Date/Time Anesthesia Start Date: 10/17/25 Anesthesia Start Time: 11:02 Stop Date/Time Anesthesia Stop Date: 10/17/25 Anesthesia Stop Time: 11:41 Summary Extremes of Age - Over 70 or under 1: MANAGER SPECIALTY Coding CPT Codes CPT Codes: ANES UPR GI NDSC PX NOS - 94699 ([id number]) P3 - PATIENT W/SEVERE SYS DISEASE, QK - SOAP SLABBER 2-4 CNCRNT ANES PROC Additional Codes: Summary - Extremes of Age - Over 70 or under 1: MANAGER SPECIALTY ([id number])
--- NOTE | 2025-10-17 11:30 | W.ANESCHARGE ---
Anesthesia Charges Start Date/Time Anesthesia Start Date: 10/17/25 Anesthesia Start Time: 11:02 Stop Date/Time Anesthesia Stop Date: 10/17/25 Anesthesia Stop Time: 11:41 Summary Extremes of Age - Over 70 or under 1: SPACE STUDIES FACULTY MEMBER Coding CPT Codes CPT Codes: ANES UPR GI NDSC PX NOS - 72803 ([id number]) P3 - PATIENT W/SEVERE SYS DISEASE, QK - PROMOTION PRODUCER 2-4 CNCRNT ANES PROC Additional Codes: Summary - Extremes of Age - Over 70 or under 1: SPACE STUDIES FACULTY MEMBER ([id number])
--- NOTE | 2025-10-17 11:42 | P.ANES_ITS ---
Anesthesia Charges Start Date/Time Anesthesia Start Date: 10/17/25 Anesthesia Start Time: 11:02 Stop Date/Time Anesthesia Stop Date: 10/17/25 Anesthesia Stop Time: 11:41 Summary Extremes of Age - Over 70 or under 1: MDA Coding CPT Codes CPT Codes: ANES UPR GI NDSC PX NOS - 41944 ([id number]) P3 - PATIENT W/SEVERE SYS DISEASE, QK - JANITOR 2-4 CNCRNT ANES PROC, QX - ELEVATED WORK PLATFORM OPERATOR SVC W/ MD MED DIRECTION Additional Codes: Summary - Extremes of Age - Over 70 or under 1: MDA ([id number])
--- NOTE | 2025-10-17 11:42 | W.ANESCHARGE ---
Anesthesia Charges Start Date/Time Anesthesia Start Date: 10/17/25 Anesthesia Start Time: 11:02 Stop Date/Time Anesthesia Stop Date: 10/17/25 Anesthesia Stop Time: 11:41 Summary Extremes of Age - Over 70 or under 1: MDA Coding CPT Codes CPT Codes: ANES UPR GI NDSC PX NOS - 76077 ([id number]) P3 - PATIENT W/SEVERE SYS DISEASE, QK - FINISHING MANAGER 2-4 CNCRNT ANES PROC, QX - ED TRANSPORTER SVC W/ MD MED DIRECTION Additional Codes: Summary - Extremes of Age - Over 70 or under 1: MDA ([id number])
== END 2025-10-17 10:16 | disposition home or self-care (01) ==
PROVIDERS: PCP Family Medicine; Visit Provider Internal Medicine Gastroenterology
DX: R10.13 Epigastric pain (principal); K29.40 Chronic atrophic gastritis without bleeding; K21.9 Gastro-esophageal reflux disease without esophagitis; K29.50 Unspecified chronic gastritis without bleeding
CPT/HCPCS: 00731; 43239; 99100; J2704; J3490